=== PATIENT | female | born 1950 | race Hispanic/Latino ===

== ENCOUNTER → 2016-11-18 | Outpatient (CLI) | payer MEDICARE ==
--- NOTE | 2016-11-19 13:34 | MRI ---
EXAM DESCRIPTION: Lumbar Spine w/wo Contrast CLINICAL HISTORY: LUMBAR RADICULOPATHY COMPARISON: June 22, 2015 TECHNIQUE: MRI of the lumbar spine is performed according to our usual protocol with axial and sagittal multi sequence imaging. FINDINGS: MR demonstrates extensive spinal hardware with pedicle screws and posterior links at the L4-5 level and disc graft material at L5-S1 with anterior fixation with plating and screws into the L5 and S1 vertebral segments. Decompressive laminectomy has been performed from the upper L4 through the upper sacral level. Image quality is degraded by significant susceptibility artifact from the metallic hardware and little changed from June 2015 study. Three level diffuse disc desiccation is present. The conus is positioned at the T12-L1 level. Vertebral height at each level is maintained. The retroperitoneum and paraspinous structures are normal. No abnormality at the thoracolumbar junction is noted. L1-2: the disc is well hydrated. There is no loss of height. There is no bulging. The facets are unremarkable with no significant hypertrophy. There is no stenosis or impingement. L2-3: Disc desiccation with mild annular bulge with adequate canal and neural foramina and mild facet arthropathy, worse on the right. L3-4: Disc desiccation and disc space narrowing. Moderate broad-based bulging annulus with advanced facet arthropathy right greater than left creates moderate central canal stenosis slightly worse in appearance than seen in June 2015. Moderate bilateral L3 foraminal narrowing on a multifactorial basis. L4-5: Desiccation and advanced disc degeneration and endplate irregularity similar to that previously seen with pedicle screws above and below this disc level with wide prior laminectomy and decompression of the central canal. The neural foramina appear adequate. L5-S1: Prior anterior discectomy with graft material in place and anterior plating with anterior screws into the S1 and L5 vertebral bodies. Wide posterior decompression of the canal with adequate L5 neural foramina bilaterally. IMPRESSION: 1. Stents of prior lower lumbar surgery with wide decompressive laminectomy from upper L4 to upper S1 level. Bilateral pedicle screws and vertical rods at the L4-5 level and disc graft device in the anterior plating and screws at the L5-S1 level noted. 2. Satisfactory neural foramina and central canal at L4-5 and L5-S1. 3. Multifactorial circumferential spinal stenosis L3-4 with broad-based annular bulge and facet arthropathy worse on the right with moderate bilateral L3 foraminal narrowing as well. Slight progression since June 2015 is evident. 4. Annular bulge with adequate canal and foramen at L2-3. Electronically signed by: Ahsan Chapman MD 11/19/2016 1:33 PM CDT
== END ==
LOC: MRI 13:48
PROVIDERS: ATTEND Physical Medicine & Rehabilitation
DX: M54.16 Radiculopathy, lumbar region (principal); M48.06 Spinal stenosis, lumbar region; E04.2 Nontoxic multinodular goiter; Z98.890 Other specified postprocedural states

== ENCOUNTER → 2017-04-02 | Outpatient (CLI) | payer MEDICARE | LOC: BFHH 13:49 | PROVIDERS: ATTEND Family Medicine | DX: E87.6 Hypokalemia (principal); D61.810 Antineoplastic chemotherapy induced pancytopenia ==

== ENCOUNTER → 2017-11-30 | Outpatient (CLI) | payer MEDICARE ==
--- NOTE | 2017-12-02 09:54 | CT ---
EXAM DESCRIPTION: Abdomen/Pelvis w/wo Contrast CLINICAL HISTORY: MALIGNANT TUMOR OF RECTUM COMPARISON: None Available TECHNIQUE: CT of the abdomen and Pelvis was performed with and without IV contrast. This exam was performed according to our departmental dose-optimization program, which includes automated exposure control, adjustment of the mA and/or kV according to patient size and/or use of iterative reconstruction technique. FINDINGS: Pre-IV contrast images show no lung base abnormality. The gallbladder is surgically absent. Pneumobilia is noted, likely related to previous instrumentation of the ampulla. No urinary tract calculus. Following IV contrast administration, no abdominal aortic aneurysm or dissection is seen. The liver, spleen, pancreas, kidneys and adrenals are unremarkable. A suture line is noted in the right mid abdomen. No dilated small bowel loops are identified. The bladder is slightly distended without wall thickening or calcification. The uterus and ovaries are not seen, correlate with surgical history. Postoperative changes are noted in the colon including a colostomy in the left lower quadrant. There is a moderate amount of stool and gas in the colon proximal to the ostomy without colonic wall thickening or pericolonic inflammation. Slightly prominent appearance of remaining portions of the rectum is noted with subtle adjacent inflammation or scarring. There is an irregular collection of fluid density material in the cul-de-sac which is difficult to measure due to its shape but measures up to 2.7 cm maximum diameter. No internal gas, but this could represent a small abscess versus fluid in the distal colon. No adenopathy, ascites or pneumoperitoneum. No concerning bone lesion. Postoperative changes are noted in the lumbar spine. IMPRESSION: Postoperative changes in the colon with a left lower quadrant colostomy. Slightly prominent appearance of the distal rectum near the anorectal junction with mild adjacent inflammation. This may be related to scarring from prior surgery, please correlate physical exam to exclude the possibility of recurrent neoplasm. No evidence of metastatic disease. Small irregular fluid density structure in the region of the cul-de-sac which may represent fluid in the distal colon versus small abscess. Electronically signed by: Regino Cota MD 12/02/2017 9:53 AM CDT
== END ==
LOC: CT 14:09
DX: C20 Malignant neoplasm of rectum (principal); Z76.89 Persons encountering health services in other specified circumstances

== ENCOUNTER 2018-01-03 16:58 | Emergency (ER) | payer MEDICARE ==
--- NOTE | 2018-01-03 17:21 | ED.PDOC ---
History of Present Illness - General Chief Complaint: Abdominal Pain Stated Complaint: LLQ pain Time Seen by Provider: 01/03/18 17:21 Information Source: patient Exam Limitations: no limitations - History of Present Illness Initial Comments: Arcelia Beckman 67 y/o female with history of Stage 4 colon CA s/p colstomy,colon and liver rese ction came to er with sudden onset of constant sharp left lower quadrant pain this afternoon.No nausea/vomiting or blood colostomy. No hematuria ,or/dysuria. Abdominal Pain Onset Location: LLQ Pain Radiation: no radiation Quality: severe, sharpness Timing/Duration: 1-3 hours Improving Factors: nothing Worsening Factors: nothing Associated Symptoms: other - see hpi Review of Systems - Review of Systems Constitutional: States: no symptoms reported EENTM: States: no symptoms reported Respiratory: States: no symptoms reported Cardiology: States: no symptoms reported Gastrointestinal/Abdominal: States: see HPI Genitourinary: States: no symptoms reported Musculoskeletal: States: no symptoms reported Skin: States: no symptoms reported Neurological: States: no symptoms reported Past Medical History (General) - Patient Medical History Hx Seizures: No Hx Stroke: No Hx Asthma: No Hx of COPD: No Hx Cardiac Disorders: No Hx Congestive Heart Failure: No Hx Hypertension: Yes Hx Thyroid Disease: No Hx Diabetes: No Hx Renal Disease: No Hx Cancer: Yes - rectal-recent;breast-in remission Hx of HIV: No Hx MRSA: Yes - Surveillance Swab 2014 Hx Other - free text: Had radiation had chemotherapy for her colon CA Surgical History: appendectomy, cholecystectomy, other - mastectomy-toby.;colon/ partial liver resection;hysterectomy - Vaccination History Hx Tetanus, Diphtheria Vaccination: Yes Hx Influenza Vaccination: No Hx Pneumococcal Vaccination: Yes - Social History Hx Tobacco Use: No Hx Alcohol Use: No Hx Physical Abuse: No Hx Emotional Abuse: No Hx Suspected Abuse: No Family Medical History - Family History Mother Family History: Unknown Living Status: Unknown Hx Family Cancer: Yes - leukemia-dad Physical Exam - Physical Exam General Appearance: Alert, No apparent distress, Other - in pain Eyes, Ears, Nose, Throat Exam: normal ENT inspection Neck: full range of motion, supple, normal inspection Respiratory: lungs clear, normal breath sounds, no respiratory distress Cardiovascular/Chest: normal peripheral pulses, regular rate, rhythm, no murmur Peripheral Pulses: No deficit Gastrointestinal/Abdominal: soft, tenderness - left LLQ-no peritoneal signs, other - patent colostomy Back Exam: no CVA tenderness, no vertebral tenderness Extremity: no pedal edema, no calf tenderness Neurologic: alert, oriented x 3 Skin Exam: normal color, warm/dry Progress - Progress Progress: 01/03/18 20:40 Vital Signs - 8 hr 01/03/18 16:58 Temperature 97.3 F L Pulse Rate [ 68 Left Radial] Respiratory 22 Rate Blood Pressure 185/86 [Left Arm] O2 Sat by Pulse 99 Oximetry - Results/Orders Results/Orders: 01/03/18 17:21 IV Care:Saline Lock per Protoc QSHIFT Laboratory Results - last 24 hr 01/03/18 01/03/18 01/03/18 17:50 17:50 18:18 WBC 5.6 RBC 3.71 L Hgb 11.4 L Hct 34.5 L MCV 92.9 MCH 30.7 MCHC 32.9 L RDW 16.0 H Plt Count 168 MPV 9.5 Absolute Neuts (auto) 4.30 Absolute Lymphs (auto) 0.90 L Absolute Monos (auto) 0.40 Absolute Eos (auto) 0.10 Absolute Basos (auto) 0.00 Neutrophils % 76.1 Lymphocytes % 15.7 L Monocytes % 6.5 Eosinophils % 1.2 Basophils % 0.5 Sodium 140 Potassium 3.6 Chloride 104 Carbon Dioxide 30 Anion Gap 9.6 L BUN 15 Creatinine 0.54 L BUN/Creatinine Ratio 27.8 H Random Glucose 105 Serum Osmolality 280.6 Calcium 9.1 Total Bilirubin 0.4 AST 34 ALT 30 Alkaline Phosphatase 417 H Serum Total Protein 7.2 Albumin 3.8 Globulin 3.4 Albumin/Globulin Ratio 1.1 Urine Color Yellow Urine Appearance Clear Urine pH 7.0 Ur Specific [place] 1.010 Urine Protein Negative Urine Glucose (UA) Negative Urine Ketones Negative Urine Blood Trace-intact H Urine Nitrite Negative Urine Bilirubin Negative Urine Urobilinogen 0.2 Ur Leukocyte Esterase Negative Urine RBC 0-1 Urine WBC 0 Ur Epithelial Cells 1-3 Urine Bacteria 0 - EKG/XRAY/CT CT Ordered: Yes - abd/p-no acute changes from previous abd ct Departure - Departure Clinical Impression: History of colon cancer, stage IV, Constipation due to slow transit Abdominal pain Qualifiers: Abdominal location: left lower quadrant Qualified Code(s): R10.32 - Left lower quadrant pain Time of Disposition: 20:43 Disposition: Discharge to Home or Self Care Condition: Fair Departure Forms: ED Discharge - Pt. Copy, Patient Portal Self Enrollment Instructions: Colostomy Care, Constipation, Adult (DC) Referrals: TERESSA GREENE [Primary Care Provider] - 1-2 Weeks Home Medications: Ambulatory Orders ALPRAZolam [Xanax] 1 mg PO TID 04/10/14 Acai ([place] Oleracea) [Acai] 88 mg PO BID 04/10/14 Acetaminophen [Tylenol] 500 mg PO PRN PRN 04/10/14 Atenolol [Tenormin] 50 mg PO DAILY@0700 04/10/14 Bisacodyl [Stimulant Laxative] 5 mg PO PRN 04/10/14 Calcium Carbonate (Antacid) [Tums] 1 ea PO PRN 04/10/14 Cyclobenzaprine HCl [Flexeril] 10 mg PO TID 04/10/14 Dexlansoprazole [Dexilant] 60 mg PO DAILY 04/10/14 -Lidocaine Vis-Maalox [Gi Cocktail] 125 mg PO PRN 04/10/14 Echinacea 1 each PO PRN 04/10/14 Fluoxetine HCl [Prozac] 20 mg PO BEDTIME 04/10/14 Fluoxetine HCl [Prozac] 40 mg PO DAILY@0700 04/10/14 Hydrochlorothiazide 25 mg PO DAILY 04/10/14 Liniments & Rubs [Blue-Emu Super Strength] 1 cre EX PRN 04/10/14 Losartan Potassium [Cozaar] 25 mg PO DAILY 04/10/14 Melatonin 6 mg PO BEDTIME 04/10/14 Methylphenidate HCl [Ritalin] 10 mg PO BID 04/10/14 Simethicone [Gas Relief Maximum Streng] 125 mg PO PRN 04/10/14 Zolpidem Tartrate [Ambien] 10 mg PO BEDTIME 04/10/14 Additional Instructions: Return to ER as needed;Need to take your Miralax as directed on package;follow up with your primary Md as needed call for appointment
[2018-01-03] MEDS: MORPHINE SULFATE INJ 10 MG/ML VIAL IV ONE (17:32)
[2018-01-03] MEDS: PROMETHAZINE HCL INJ 25 MG/ML VIAL IM ONE (17:33)
[2018-01-03] MEDS: SODIUM CHLORIDE 0.9% 500ML 500 ML IVS ONE (17:33)
--- NOTE | 2018-01-03 18:35 | CT ---
EXAM DESCRIPTION: Abdoment/Pelvis w/o Contrast CLINICAL HISTORY: 67 years Female pain/s/p colostomy; colon ca COMPARISON: 12/01/2017 TECHNIQUE: Contiguous axial images obtained through the abdomen and pelvis without IV contrast. Reformatted images obtained. This exam was performed according to our department optimization program which includes automated exposure control, adjustment of the mA and/or kv according to patient size and/or use of iterative reconstruction technique. FINDINGS: Scarring in the lung bases. Bilateral breast implants. Small amount of gas in the anterior aspect of the liver suggesting pneumobilia. This is unchanged from the previous study. The spleen and pancreas appear unremarkable. No adrenal masses. The kidneys appear unremarkable. No hydronephrosis or definite ureteral calculi. The gallbladder is absent. No aneurysmal dilatation of the aorta. No bowel obstruction. There is a left lower quadrant colostomy. There is a moderate to large amount of fecal material in the colon which may reflect constipation. Mild wall thickening in segments of the transverse colon suggesting colitis. Scarring and/or stranding in the presacral space, similar to the previous study. No free pelvic fluid. IMPRESSION: Examination is limited without contrast Moderately large amount of fecal material in the colon which may reflect constipation Mild wall thickening of the transverse colon suggesting colitis Stranding in the presacral space similar to the previous study likely related to scarring Post surgical changes in the lumbar spine Electronically signed by: Nancy Nj MD 01/03/2018 6:33 PM CDT
[2018-01-03 20:59] VITALS: TEMP 97.9
[2018-01-03 21:00] VITALS: BP 160/77; O2SAT 100
== END 2018-01-03 21:01 | disposition home or self-care (01) ==
LOC: ER 16:58
DX: K59.01 Slow transit constipation (principal); I10 Essential (primary) hypertension; Z85.3 Personal history of malignant neoplasm of breast; Z85.038 Personal history of other malignant neoplasm of large intestine; Z90.13 Acquired absence of bilateral breasts and nipples
CPT/HCPCS: 36415; 74176; 80053; 81001; 85025; J2270; J2550; J7040

== ENCOUNTER → 2018-02-25 | Outpatient (CLI) | payer MEDICARE ==
--- NOTE | 2018-02-25 16:32 | CT ---
EXAM DESCRIPTION: Chest w/Contrast CLINICAL HISTORY: 67 years, Female, RECTAL CANCER COMPARISON: CT abdomen January 03, 2018 TECHNIQUE: Thin-section noncontrast axial CT images are obtained according to our protocol. Reconstructed MPR images are created and reviewed as well. FINDINGS: Lungs: No consolidating pulmonary infiltrate or groundglass infiltrate. Lung nodule in the superior segment left lower lobe involves the upper left major fissure with focal posterior displacement. This nodule measures 1 cm in diameter and may represent primary or metastatic neoplasm. Linear scarring or discoid atelectasis in the lingula is incidentally noted. Lesser similar changes in the left lower lobe and peripheral right middle lobe. Calcified granuloma in the periphery of the left upper lobe measures 4 mm. Mediastinum: Lymph nodes are normal in size. Normal vascular contours. Heart size is large with no pericardial effusion. Chest wall/axilla: No mass or adenopathy. Bilateral breast implants are present. Port-A-Cath on the right is present with tip in the lower superior vena cava. Lower neck/supraclavicular: No mass or adenopathy. Upper abdomen: Pneumobilia is seen in the liver. Gallbladder clips are present Otherwise unremarkable upper abdominal viscera. IMPRESSION: Lung nodule 1 cm in the superior segment left lower lobe consistent with primary or metastatic malignant lesion. Further evaluation with biopsy is recommended. This exam was performed according to our departmental dose-optimization program, which includes automated exposure control, adjustment of the mA and/or kV according to patient size and/or use of iterative reconstruction technique. Total DLP equals 99.01 mGycm. Electronically signed by: Randolph Williamson MD 02/25/2018 4:30 PM [facility]
== END ==
LOC: CT 13:30
PROVIDERS: ATTEND Internal Medicine
DX: C20 Malignant neoplasm of rectum (principal); R91.1 Solitary pulmonary nodule

== ENCOUNTER 2018-04-03 10:59 | Emergency (ER) | payer MEDICARE ==
[2018-04-03 11:23] VITALS: TEMP 97; O2SAT 99
--- NOTE | 2018-04-03 11:55 | ED.PDOC ---
History of Present Illness - General Chief Complaint: Problem Stated Complaint: burning with urination Time Seen by Provider: 04/03/18 11:41 Source: patient Exam Limitations: no limitations - History of Present Illness Initial Comments: Patient presents with burning with urination for 5 days. She says she went to another E.R. and was told that she was dehydrated. Denies hematuria. No other complaints. Timing/Duration: other - 5 days Severity: mild Improving Factors: nothing Worsening Factors: nothing Associated Symptoms: denies symptoms Allergies/Adverse Reactions: Allergies Codeine Allergy (Verified 04/03/18 11:43) NSAIDs Adverse Reaction (Verified 04/03/18 11:43) Sulfa Antibiotics Adverse Reaction (Verified 04/03/18 11:43) Tetracycline Adverse Reaction (Verified 04/03/18 11:43) Home Medications: Ambulatory Orders ALPRAZolam [Xanax] 2 mg PO TID 04/10/14 Acai ([place] Oleracea) [Acai] 88 mg PO BID 04/10/14 Cyclobenzaprine HCl [Flexeril] 10 mg PO TID 04/10/14 Hydrochlorothiazide 25 mg PO DAILY 04/10/14 Bupropion HCl [Bupropion HCl Sr] 300 mg PO DAILY 04/03/18 Fluconazole [Diflucan Tab] 150 mg PO ONCE #1 tab 04/03/18 Gabapentin 600 mg PO TID 04/03/18 Methylphenidate [Daytrana] 40 mg TD DAILY 04/03/18 Metoprolol Succinate [Metoprolol Succinate ER] 25 mg PO DAILY 04/03/18 Nitrofurantoin Monohydrate Mac [Macrobid] 100 mg PO BID #10 capsule 04/03/18 [place]-3 Fatty Acids [Fish Oil] 1 cap PO DAILY 04/03/18 Omeprazole 40 mg PO DAILY 04/03/18 Oxycodone W/ Acetaminophen [Oxycodone/Acetaminophen] 1 tab PO QID 04/03/18 Phenazopyridine HCl [Pyridium] 200 mg PO TID #6 tab 04/03/18 Review of Systems - Review of Systems Constitutional: States: no symptoms reported EENTM: States: no symptoms reported Respiratory: States: no symptoms reported Cardiology: States: no symptoms reported Gastrointestinal/Abdominal: States: no symptoms reported Genitourinary: States: see HPI Musculoskeletal: States: no symptoms reported Skin: States: no symptoms reported Neurological: States: no symptoms reported Endocrine: States: no symptoms reported Hematologic/Lymphatic: States: no symptoms reported Past Medical History (General) - Patient Medical History Hx Seizures: No Hx Stroke: No Hx Asthma: No Hx of COPD: No Hx Cardiac Disorders: No Hx Congestive Heart Failure: No Hx Hypertension: Yes Hx Thyroid Disease: No Hx Diabetes: No Hx Gastroesophageal Reflux: Yes Hx Renal Disease: No Hx Cancer: Yes - Breast,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 Hx of HIV: No Hx MRSA: Yes - Surveillance Swab 2014 Surgical History: cholecystectomy, Hysterectomy - Vaccination History Hx Tetanus, Diphtheria Vaccination: Yes Hx Influenza Vaccination: Yes Hx Pneumococcal Vaccination: No - Social History Hx Tobacco Use: Yes Hx Alcohol Use: No Hx Physical Abuse: No Hx Emotional Abuse: No Hx Suspected Abuse: No Family Medical History - Family History Mother Family History: Unknown Living Status: Unknown Hx Family Cancer: Yes - leukemia-dad Physical Exam - Physical Exam General Appearance: Alert Respiratory: lungs clear, normal breath sounds Cardiovascular/Chest: normal peripheral pulses, regular rate, rhythm Gastrointestinal/Abdominal: normal bowel sounds, non tender, soft Skin Exam: normal color Progress - Progress Progress: 04/03/18 11:54 Laboratory Tests 04/03/18 11:37 Urine Color Yellow Urine Appearance Clear Urine pH 6.0 Ur Specific [place] 1.015 Urine Protein Negative Urine Glucose (UA) Negative Urine Ketones Negative Urine Blood Small H Urine Nitrite Negative Urine Bilirubin Negative Urine Urobilinogen 0.2 Ur Leukocyte Esterase Small H Urine RBC 0 Urine WBC 3-5 H Ur Epithelial Cells 3-5 Urine Bacteria Rare Possibly a mild developing UTI. Will tx with Macrobid 100 mg bid x 5 days, diflucan 150 mg po once, and pyridium. Care instructions given. E.R. warnings given. Questions were elicited and an swered. Patient voiced understanding and agreement with the plan. Departure - Departure Clinical Impression: UTI (urinary tract infection) Disposition: Discharge to Home or Self Care Condition: Good Departure Forms: ED Discharge - Pt. Copy, Patient Portal Self Enrollment Diet: resume usual diet Activity: increase activity as tolerated Referrals: TERESSA GREENE [Primary Care Provider] - 1-2 Weeks Prescriptions: Fluconazole [Diflucan Tab] 150 mg PO ONCE #1 tab Nitrofurantoin Monohydrate Mac [Macrobid] 100 mg PO BID #10 capsule Phenazopyridine HCl [Pyridium] 200 mg PO TID #6 tab Home Medications: Ambulatory Orders ALPRAZolam [Xanax] 2 mg PO TID 04/10/14 Acai ([place] Oleracea) [Acai] 88 mg PO BID 04/10/14 Cyclobenzaprine HCl [Flexeril] 10 mg PO TID 04/10/14 Hydrochlorothiazide 25 mg PO DAILY 04/10/14 Bupropion HCl [Bupropion HCl Sr] 300 mg PO DAILY 04/03/18 Fluconazole [Diflucan Tab] 150 mg PO ONCE #1 tab 04/03/18 Gabapentin 600 mg PO TID 04/03/18 Methylphenidate [Daytrana] 40 mg TD DAILY 04/03/18 Metoprolol Succinate [Metoprolol Succinate ER] 25 mg PO DAILY 04/03/18 Nitrofurantoin Monohydrate Mac [Macrobid] 100 mg PO BID #10 capsule 04/03/18 [place]-3 Fatty Acids [Fish Oil] 1 cap PO DAILY 04/03/18 Omeprazole 40 mg PO DAILY 04/03/18 Oxycodone W/ Acetaminophen [Oxycodone/Acetaminophen] 1 tab PO QID 04/03/18 Phenazopyridine HCl [Pyridium] 200 mg PO TID #6 tab 04/03/18
[2018-04-03 12:12] VITALS: BP 153/79
== END 2018-04-03 12:12 | disposition home or self-care (01) ==
LOC: ER 10:59
DX: N39.0 Urinary tract infection, site not specified (principal); I10 Essential (primary) hypertension; K21.9 Gastro-esophageal reflux disease without esophagitis; Z87.891 Personal history of nicotine dependence; Z85.3 Personal history of malignant neoplasm of breast; Z85.040 Personal history of malignant carcinoid tumor of rectum; Z85.05 Personal history of malignant neoplasm of liver

== ENCOUNTER → 2018-06-17 | Outpatient (CLI) | payer MEDICARE ==
--- NOTE | 2018-06-18 10:00 | CT ---
Study: CT Chest. Indication: PULMONARY NODULE Technique: CT imaging of the chest obtained after intravenous administration of contrast. This exam was performed according to our departmental dose-optimization program, which includes automated exposure control, adjustment of the mA and/or kV according to patient size and/or use of iterative reconstruction technique. Comparison: February 25, 2018 Findings: Right IJ catheter tip terminates in distal SVC. Cardiomegaly. No pathologically enlarged mediastinal or hilar lymphadenopathy. Cholecystectomy clips. Pneumobilia redemonstrated. Degenerative changes of the spine noted. No consolidation, pleural effusion, or pneumothorax. Previously noted 10 mm pleural-based pulmonary nodule in the superior segment left lower lobe has markedly contracted with mild stellate scarring at this site. No new pulmonary nodules. Impression: Marked contraction of the previously noted left lower lobe pulmonary nodule which now demonstrates mild stellate scarring. No additional follow-up of this nodule required. Cardiomegaly. Pneumobilia. Electronically signed by: Patrice Dominique MD 06/18/2018 9:57 AM CDT
== END ==
LOC: CT 13:30
PROVIDERS: ATTEND Internal Medicine
DX: C78.7 Secondary malignant neoplasm of liver and intrahepatic bile duct (principal); R91.1 Solitary pulmonary nodule; I51.7 Cardiomegaly; K83.8 Other specified diseases of biliary tract

== ENCOUNTER → 2018-09-15 | Outpatient (CLI) | payer MEDICARE ==
--- NOTE | 2018-09-16 10:15 | CT ---
EXAM DESCRIPTION: Chest w/Contrast : Computed Tomography. CLINICAL HISTORY: 68 years Female Liver mets, lung mets COMPARISON: CT scan of the chest with IV contrast 06/17/2018. TECHNIQUE: Spiral-axial scans at 5 x 5 mm intervals through the lungs and thorax with IV contrast. 2.5 x 5 mm lung algorithm axial reconstructions. Coronal and sagittal 2.0 Mm reconstructions. No adverse reactions. Total Exam DLP: 241.49 mGy-cm. This exam was performed according to our departmental dose-optimization program which includes automated exposure control, adjustment of the mA and/or kV according to patient size and/or use of iterative reconstruction technique; to reduce radiation dose to as low as reasonably achievable (ALARA). Nodule measurements under 10 mm are given as mean value of 3 axes diameters. FINDINGS: Lungs and large airways: Thickened linear and branching densities representing scarring and/or atelectasis are visualized in the superior segment of the left lower lobe and the posterior left upper lobe abutting the major fissure and the superior lingula. This was not seen on the prior study. Some of this density is abutting the left lower lobe posterior pleura in the upper lobe lateral pleura. The density abutting the superior segment posterior pleura is more nodular. Pleural parenchymal scarring in the left lower lobe and minimal volume loss. No abnormal nodules or masses in the right lung. No focal infiltrates or scarring. Pleural spaces: Minimal thickening abutting the regions described above. No pleural effusion or pneumothorax. Mediastinum and Krista: No enlarged lymph nodes or dominant soft tissue masses. Great vessels and Heart: Negative. Soft tissues of neck base, axillae, and chest wall: Bilateral saline retro-muscular breast implants. Surgical clips superior to the left implant. Stable nodes. VAD injection port superior to right breast. Tip in customary position. Upper abdomen: Included peritoneal cavity negative. Air in the biliary tree. Surgical clips gallbladder fossa with no fluid. Dilated common bile duct. Adrenal glands and spleen normal size and enhancement. Osseous structures: Spondylosis thoracic spine. Anterior wedging of T9 is stable. Bilateral first costo sternal joint arthrosis. No bony or lytic blastic lesions. IMPRESSION: 1. Linear and nodular scarring and atelectasis upper lingula left lobe, superior left major fissure, and superior segment left lower lobe. Not seen on the prior study. Nodular densities unlikely to represent recurrent tumor. Cannot exclude small infiltrate. Most likely region of partial segmentectomy and radiation. Remainder of the lungs are unremarkable. No hilar, mediastinal, or chest wall soft tissue masses. Consider follow-up chest CT scan with IV contrast 3-6 month interval. 2. Included liver with no focal lesions. Air in the biliary system. No ascites. Electronically signed by: Jose Ramon Coffey MD 09/16/2018 10:13 AM CDT
== END ==
LOC: CT 09:00
PROVIDERS: ATTEND Internal Medicine
DX: C20 Malignant neoplasm of rectum (principal); C78.7 Secondary malignant neoplasm of liver and intrahepatic bile duct; C78.00 Secondary malignant neoplasm of unspecified lung

== ENCOUNTER → 2018-10-06 | Outpatient (CLI) | payer MEDICARE ==
--- NOTE | 2018-10-07 14:07 | CT ---
EXAM DESCRIPTION: Chest w/wo Contrast : Computed Tomography. 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 CT scan of the chest with and without contrast 09/15/2018. TECHNIQUE: Spiral-axial scans at 5 x 5 mm intervals through the lungs and thorax without and with IV contrast. 2.5 x 5 mm lung algorithm axial reconstructions. Coronal and sagittal 2.0 Mm reconstructions, postcontrast. No adverse reactions. Total Exam DLP: 561.68 mGy-cm. This exam was performed according to our departmental dose-optimization program which includes automated exposure control, adjustment of the mA and/or kV according to patient size and/or use of iterative reconstruction technique; to reduce radiation dose to as low as reasonably achievable (ALARA). Nodule measurements under 10 mm are given as mean value of 3 axes diameters. FINDINGS: Lungs and large airways: Stable pleural parenchymal scarring in the left lower lobe with volume loss. Confluent scarring in the right upper lobe involving the pleura and parenchyma, most likely site of prior partial lobectomy is stable. Stable subpleural nodular density lateral left upper lobe. Minimal bibasilar dependent atelectasis. No new nodules or masses. No acute focal infiltrates. Pleural spaces: Minimal thickening abutting the right upper lobe and right lower lobe stable. Mediastinum and Krista: No enlarged nodes or dominant soft tissue masses. Great vessels and Heart: Coronary artery calcification and cardiomegaly stable as well as atherosclerotic calcifications and other vessels. Soft tissues of neck base, axillae, and chest wall: Bilateral retro-muscular saline breast implants stable. Minimal atrophy in the right pectoral muscle compared to the left again noted. No new nodes are soft tissue masses. Upper abdomen: Please see abdomen pelvis CT report. Osseous structures: Minimal thoracic spondylosis predominantly at the apex of the dextroscoliotic curve. Minimal arthrosis left glenohumeral joint. No lytic or blastic lesions. IMPRESSION: Scarring and volume loss at the previous operative site left lung stable with no new abnormal nodules or masses. No acute infiltrates. Consider optional chest CT scan follow-up without and with IV contrast in 6-12 month interval. Electronically signed by: Jose Ramon Coffey MD 10/07/2018 2:05 PM CDT
--- NOTE | 2018-10-07 15:49 | CT ---
EXAM DESCRIPTION: Abdomen/Pelvis w/wo Contrast: Computed Tomography. CLINICAL HISTORY: ADENOCARCINOMA METASTATIC TO LIVER COMPARISON: CT scan of the chest without and with IV contrast on this visit. CT scan of abdomen and pelvis with and without contrast 01/03/2018. TECHNIQUE: Spiral-axial scans at 2.5 x 2.5 mm mm intervals through the abdomen and upper pelvis before nonionic IV contrast and same thickness scans after Optiray 320 nonionic IV contrast, arterial phase, liver through the upper pelvis. No oral contrast. Coronal and sagittal 2.0 mm reconstructions after 5 minute delay. 5 mm 5 minute delay helical-axial scans, liver through the pubic symphysis. No adverse reactions. Total Exam DLP 2302.05 mGy - cm. This exam was performed according to our departmental CT dose-optimization program which includes automated exposure control, adjustment of the mA and/or kV according to patient size and/or use of iterative reconstruction technique; to reduce radiation dose to as low as reasonably achievable (ALARA). FINDINGS: Lung bases and pleura: Please see chest CT report on the same visit. Liver, Stomach, Spleen, Adrenal Glands: No focal abnormally enhancing or nonenhancing hepatic masses. Air in the anterior biliary tract. Stomach and other solid organs are unremarkable. Pancreas, Gallbladder, Ducts: Surgical clips in the gallbladder fossa with no fluid. Dilated common bile duct. Minimal fatty infiltration of the pancreas with no focal masses. No peripancreatic inflammatory changes. Kidneys and Ureters: Negative. Mesentery: Minimal mesentery tracking along with colon in the colostomy site. No complications. Aorta: Moderate atherosclerotic calcifications and tortuosity minimal intimal wall hyperplasia or thrombus, no aneurysm or stenosis. Small Bowel: Minimal fluid and gas but no large air-fluid levels or significant distention. Terminal Ileum/Cecum: Minimal gas with normal caliber and surgical clips inferior cecum with no appendix. . Colon: Diffuse fecal matter throughout the colon. The proximal sigmoid colon is located within the colostomy site. No complications Pelvic Organs: The posterior inferior base of the urinary bladder protrudes in the midline with no wall thickening no gross intrinsic or extrinsic mass. Stable since the prior study. Vaginal cuff is unremarkable. Ovaries not seen. No fluid in the cul-de-sac. Spine and Bony Pelvis: Fusion construct L4-S1 with anterior plate and screws L5-S1 and bilateral transpedicular screws L4-L5 with unilateral connecting rods and posterior cross-link. No bony or hardware complications. Bilateral hip joint space narrowing. No lytic or blastic lesions. Abdominal Wall/Back Soft Tissues: Colostomy site as previously noted. Small inguinal lymph nodes. Diastases at the umbilicus but not containing bowel. IMPRESSION: 1. No focal hepatic lesions or abnormal contrast enhancement. Fatty infiltration of the pancreas with no focal lesions or inflammatory changes. No ascites. 2. No bowel obstruction. Moderate obstipation of the proximal and mid colon. Proximal sigmoid colon customary position in the colostomy with no complications at the colostomy site. 3. Postoperative changes urinary bladder with no complication seen. Fusion construct lumbar sacral spine with no bony or hardware complications. Electronically signed by: Jose Ramon Coffey MD 10/07/2018 3:46 PM CDT
== END ==
LOC: CT 13:30
PROVIDERS: ATTEND Surgery
DX: C78.7 Secondary malignant neoplasm of liver and intrahepatic bile duct (principal); C50.919 Malignant neoplasm of unspecified site of unspecified female breast; M54.89 Other dorsalgia; F41.8 Other specified anxiety disorders; K86.89 Other specified diseases of pancreas; K59.00 Constipation, unspecified; Z98.1 Arthrodesis status; Z98.890 Other specified postprocedural states

== ENCOUNTER → 2018-10-14 | Outpatient (CLI) | payer MEDICARE ==
--- NOTE | 2018-10-14 17:48 | CT ---
EXAM DESCRIPTION: Lumbar Spine CLINICAL HISTORY: 68 years Female, SPINAL STENOSIS. Pain. TECHNIQUE: Multislice CT of the lumbar spine was obtained with multiplanar reconstruction. No intravenous contrast. This exam was performed according to our departmental dose-optimization program, which includes automated exposure control, adjustment of the mA and/or kV according to patient size and/or use of iterative reconstruction technique. COMPARISON: MRI lumbar spine 11/18/2016. CT abdomen and pelvis 12/26/2017. FINDINGS: Post surgical changes relating to prior L4-S1 posterior decompressive laminectomies with paired rods and transpedicular hardware fixation at L4-L5 and anterior spinal fixation at L5-S1 with L4-L5 and L5-S1 interbody spacers. The hardware alignment is stable. No evidence of hardware fracture or displacement. No perihardware lucency to suggest hardware loosening. The spinal alignment is intact without significant listhesis. At L3-L4 there is moderate intervertebral disc height loss, endplate sclerosis and vacuum disc phenomenon in addition to moderate bilateral facet arthrosis. This results in at least moderate central canal stenosis mild to moderate bilateral neuroforaminal narrowing (slightly more pronounced on the left). There is diffuse osteopenia. Trace pneumobilia is redemonstrated within the liver, similar compared to prior examination. Mild lower lumbar spine paraspinal muscle atrophy. No drainable fluid collection. IMPRESSION: 1. Stable postsurgical changes of L4-S1 posterior spinal decompression and hardware fixation without evidence of hardware complication. 2. Moderate degenerative changes at L3-L4 with at least moderate central canal stenosis at this level. Electronically signed by: Sloan Garcia DO 10/14/2018 5:47 PM CDT
--- NOTE | 2018-10-14 18:05 | RAD ---
EXAM DESCRIPTION: Lumbar Spine 5 Views CLINICAL HISTORY: SPINAL STENOSIS COMPARISON: Lumbar spine MRI 917 CT abdomen and pelvis 10/06/2018.. TECHNIQUE: AP/lateral/ coned-down lateral/both flexion and extension FINDINGS: Five views of the lumbar spine were obtained. Stable postsurgical changes of L4-S1 posterior spinal decompression and hardware fixation without evidence of hardware fracture or displacement. The vertebral body heights are maintained, no displaced fractures. The spinal alignment is intact without significant listhesis on the neutral, flexion or extension views. No evidence of dynamic subluxation. Moderate degenerative changes with intervertebral disc height loss and endplate sclerosis is present at L3-L4. IMPRESSION: 1. Stable postsurgical changes of L4-S1 posterior spinal decompression and hardware fixation without evidence of hardware complication. 2. No evidence of dynamic spinal subluxation on flexion-extension views. Electronically signed by: Sloan Garcia DO 10/14/2018 6:04 PM CDT
== END ==
LOC: CT 14:00
PROVIDERS: ATTEND Surgery
DX: M48.061 Spinal stenosis, lumbar region without neurogenic claudication (principal); M47.896 Other spondylosis, lumbar region; Z98.890 Other specified postprocedural states

== ENCOUNTER 2018-10-28 18:48 | Emergency (ER) | payer MEDICARE ==
[2018-10-28] MEDS ORDERED: POTASSIUM CHLORIDE ELIXIR 20 MEQ/15 ML UD PO ONE ×2 (19:02→23:57)
[2018-10-28] MEDS ORDERED: MAGNESIUM SULFATE PREMIX 4GM 4 GM in PREMIX BAG 1 BAG IVPB ONE (19:02)
[2018-10-28] MEDS ORDERED: KCL 40MEQ/NS 1,000 ML IVS ONE (19:03)
[2018-10-28 19:21] VITALS: O2SAT 98
[2018-10-28] MEDS ORDERED: MAGNESIUM SULFATE PREMIX 4GM 50 ML IVPB ONE (19:21)
--- NOTE | 2018-10-28 20:04 | RAD ---
EXAM: XR Chest, 1 View CLINICAL HISTORY: intermittent chest pain TECHNIQUE: Frontal view of the chest. COMPARISON: 03/12/2017. FINDINGS: Limitations: None. Lungs: Focus of linear atelectasis or scarring are present in the left midlung. Pleural space: Unremarkable. No pneumothorax. Heart: Stable cardiomegaly. Mediastinum: Unremarkable. Bones/joints: Unremarkable. Tubes, lines and devices: Stable right jugular central venous port IMPRESSION: No significant acute abnormality noted. Electronically signed by: Anju Eubanks MD 10/28/2018 8:02 PM CDT
[2018-10-28] MEDS ORDERED: diazePAM 2 MG TAB PO ONE (21:01)
[2018-10-28] MEDS ORDERED: CYCLOBENZAPRINE HCL 5 MG TAB PO ONE (21:04)
[2018-10-28] MEDS ORDERED: CYCLOBENZAPRINE HCL 10 MG TAB ONE (21:07)
--- NOTE | 2018-10-29 00:21 | ED.PDOC ---
History of Present Illness - General Chief Complaint: Cardiovascular Problem Stated Complaint: low potassium, short of breath, chest pain Time Seen by Provider: 10/28/18 18:50 Source: patient Exam Limitations: no limitations - History of Present Illness Initial Comments: the patient is a 68-year-old female presenting to the emergency room secondary to symptoms of hypokalemia. The patient had a very low potassium level checked at her primary care doctor's office. The patient had been having some shaking symptoms along with some confusion and some peripheral pain for a couple of weeks. She actually had an MRI today to look for any metastatic disease in the brain but none was found. She should appear secondary to the profound hypokalemia. The patient is highly tremulous. She does have some spasticity. She does have some weakness and has a difficult time walking. She does show some significant confusion.she has been having scattered muscle spasms in the legs and arms and the chest wall as well. Timing/Duration: 1 week Severity: severe Improving Factors: nothing Worsening Factors: nothing Associated Symptoms: chest pain, headaches, malaise, weakness Allergies/Adverse Reactions: Allergies Codeine Allergy (Verified 04/03/18 11:43) NSAIDs Adverse Reaction (Verified 04/03/18 11:43) Sulfa Antibiotics Adverse Reaction (Verified 04/03/18 11:43) Tetracycline Adverse Reaction (Verified 04/03/18 11:43) Home Medications: Ambulatory Orders ALPRAZolam [Xanax] 2 mg PO TID 04/10/14 Acai ([place] Oleracea) [Acai] 88 mg PO BID 04/10/14 Cyclobenzaprine HCl [Flexeril] 10 mg PO TID 04/10/14 Hydrochlorothiazide 25 mg PO DAILY 04/10/14 Bupropion HCl [Bupropion HCl Sr] 300 mg PO DAILY 04/03/18 Fluconazole [Diflucan Tab] 150 mg PO ONCE #1 tab 04/03/18 Gabapentin 600 mg PO TID 04/03/18 Methylphenidate [Daytrana] 40 mg TD DAILY 04/03/18 Metoprolol Succinate [Metoprolol Succinate ER] 25 mg PO DAILY 04/03/18 Nitrofurantoin Monohydrate Mac [Macrobid] 100 mg PO BID #10 capsule 04/03/18 Hankins-3 Fatty Acids [Fish Oil] 1 cap PO DAILY 04/03/18 Omeprazole 40 mg PO DAILY 04/03/18 Oxycodone W/ Acetaminophen [Oxycodone/Acetaminophen] 1 tab PO QID 04/03/18 Phenazopyridine HCl [Pyridium] 200 mg PO TID #6 tab 04/03/18 Potassium Chloride [Potassium Chloride ER] 20 meq PO DAILY #20 tab 10/29/18 Review of Systems - Review of Systems Constitutional: States: malaise, weakness EENTM: States: no symptoms reported Respiratory: States: no symptoms reported Cardiology: States: chest pain - chest wall pain Gastrointestinal/Abdominal: States: nausea Genitourinary: States: no symptoms reported Musculoskeletal: States: see HPI Skin: States: no symptoms reported Neurological: States: see HPI, anxiety Endocrine: States: no symptoms reported All other Systems: No Change from Baseline Past Medical History (General) - Patient Medical History Hx Seizures: Yes Hx Stroke: No Hx Asthma: No Hx of COPD: No Hx Cardiac Disorders: No Hx Congestive Heart Failure: No Hx Hypertension: Yes Hx Thyroid Disease: No Hx Diabetes: No Hx Gastroesophageal Reflux: Yes Hx Renal Disease: No Hx Cancer: Yes - Breast,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 Hx of HIV: No Hx MRSA: Yes - Surveillance Swab 2014 Surgical History: appendectomy, cholecystectomy, other - Vaccination History Hx Tetanus, Diphtheria Vaccination: Yes Hx Influenza Vaccination: Yes Hx Pneumococcal Vaccination: No - Social History Hx Tobacco Use: Yes Hx Alcohol Use: Yes - occ Hx Physical Abuse: No Hx Emotional Abuse: No Hx Suspected Abuse: No Family Medical History - Family History Mother Family History: Unknown Living Status: Unknown Hx Family Cancer: Yes - leukemia-dad Physical Exam - Physical Exam General Appearance: Alert, Anxious Eye Exam: bilateral normal Ears, Nose, Throat: hearing grossly normal, normal ENT inspection Neck: full range of motion, supple Respiratory: lungs clear, normal breath sounds, no respiratory distress, no accessory muscle use Cardiovascular/Chest: normal peripheral pulses, regular rate, rhythm, no edema Peripheral Pulses: radial,right: 2+, radial,left: 2+ Gastrointestinal/Abdominal: non tender - ostomy bag in place, soft Rectal Exam: deferred Back Exam: no CVA tenderness, no vertebral tenderness Extremity: normal range of motion, non-tender, normal inspection, no pedal edema, normal capillary refill 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, alert, oriented x 3 - but easily confused, other - see history of present illness Skin Exam: normal color Comments: Vital Signs - 24 hr 10/28/18 10/28/18 10/28/18 19:05 20:00 21:30 Temperature 99.3 F Pulse Rate 55 L 55 L Pulse Rate [ 50 L apical] Pulse Rate [ 58 L 56 L 53 L left] Respiratory 24 22 22 Rate Blood Pressure 155/76 148/81 137/84 [Left Arm] O2 Sat by Pulse 98 98 98 Oximetry 10/28/18 10/28/18 22:00 23:31 Temperature Pulse Rate 56 L 56 L Pulse Rate [ apical] Pulse Rate [ 54 L 55 L left] Respiratory 22 20 Rate Blood Pressure 131/81 149/73 [Left Arm] O2 Sat by Pulse 98 98 Oximetry Progress - Progress Progress: 10/29/18 00:23 the patient is a 68-year-old female presenting to the emergency room with signs and symptoms of profound hypokalemia. The patient was monitored on telemetry monitoring. Magnesium was replaced followed by the potassium. She has received approximately 120 mEq of potassium. The patient's potassium went from 2.2 up to 2.9 at which point she was given another 40 mEq. Signs and symptoms of hypokalemia have essentially resolved. No significant arrhythmias noted on telemetry. Hypokalemia is most likely from hydrochlorothiazide use. She is to discontinue the hydrochlorothiazide. I'm going to place her on 20 mEq of potassium daily. She needs to have another potassium level checked around the middle of next week. She needs to follow up with her primary care doctor at that time. ER warnings were given for any worsening. - Results/Orders Results/Orders: Laboratory Tests 10/28/18 10/28/18 10/28/18 19:17 19:17 19:17 WBC 9.0 RBC 4.00 L Hgb 12.6 Hct 35.3 L MCV 88.4 MCH 31.6 H MCHC 35.7 RDW 13.6 Plt Count 224 MPV 9.2 Absolute Neuts (auto) 7.20 H Absolute Lymphs (auto) 0.90 L Absolute Monos (auto) 0.80 Absolute Eos (auto) 0.00 Absolute Basos (auto) 0.00 Neutrophils % 80.8 H Lymphocytes % 10.3 L Monocytes % 8.5 Eosinophils % 0.0 L Basophils % 0.4 PT 10.6 INR 1.06 PTT (SP) 27.6 Sodium 133 L Potassium 2.2 L* Chloride 97 L Carbon Dioxide 22 Anion Gap 16.2 BUN 24 H Creatinine 1.01 BUN/Creatinine Ratio 23.8 H Random Glucose 114 H Serum Osmolality 271.3 L Calcium 9.3 Magnesium Total Bilirubin 0.7 AST 30 ALT 26 Alkaline Phosphatase 295 H Creatine Kinase 305 H* CK-MB (CK-2) 7.6 H* CK-MB (CK-2) % 2.49 Troponin I 0.03 B-Natriuretic Peptide 27.5 Serum Total Protein 8.4 H Albumin 4.6 Globulin 3.8 H Albumin/Globulin Ratio 1.2 Urine Color Urine Appearance Urine pH Ur Specific [place] Urine Protein Urine Glucose (UA) Urine Ketones Urine Blood Urine Nitrite Urine Bilirubin Urine Urobilinogen Ur Leukocyte Esterase Urine RBC Urine WBC Ur Epithelial Cells Urine Bacteria Hyaline Casts 10/28/18 10/28/18 10/28/18 19:17 20:17 22:21 WBC RBC Hgb Hct MCV MCH MCHC RDW Plt Count MPV Absolute Neuts (auto) Absolute Lymphs (auto) Absolute Monos (auto) Absolute Eos (auto) Absolute Basos (auto) Neutrophils % Lymphocytes % Monocytes % Eosinophils % Basophils % PT INR PTT (SP) Sodium 134 L Potassium 2.9 L D Chloride 101 Carbon Dioxide 19 L Anion Gap 16.9 BUN 22 H Creatinine 0.92 BUN/Creatinine Ratio 23.9 H Random Glucose 123 H Serum Osmolality 272.9 L Calcium 9.1 Magnesium 2.2 Total Bilirubin AST ALT Alkaline Phosphatase Creatine Kinase CK-MB (CK-2) CK-MB (CK-2) % Troponin I B-Natriuretic Peptide Serum Total Protein Albumin Globulin Albumin/Globulin Ratio Urine Color Yellow Urine Appearance Clear Urine pH 5.5 Ur Specific [place] 1.010 Urine Protein Negative Urine Glucose (UA) Negative Urine Ketones Negative Urine Blood Trace-intact H Urine Nitrite Negative Urine Bilirubin Negative Urine Urobilinogen 0.2 Ur Leukocyte Esterase Negative Urine RBC 1-3 Urine WBC 0-1 Ur Epithelial Cells 0 Urine Bacteria 0 Hyaline Casts 0-1 EKG shows scattered inverted T waves which is consistent with her EKG from 2015. She does have sinus bradycardia rate of 52 bpm and mild left atrial dilation as well. No acute changes otherwise. Departure - Departure Clinical Impression: Hypokalemia due to loss of potassium Disposition: Discharge to Home or Self Care Condition: Fair Departure Forms: ED Discharge - Pt. Copy, Patient Portal Self Enrollment Diet: regular diet Activity: increase activity as tolerated Referrals: TERESSA GREENE [Primary Care Provider] - 1-2 Weeks Prescriptions: Potassium Chloride [Potassium Chloride ER] 20 meq PO DAILY #20 tab Home Medications: Ambulatory Orders ALPRAZolam [Xanax] 2 mg PO TID 04/10/14 Acai ([place] Oleracea) [Acai] 88 mg PO BID 04/10/14 Cyclobenzaprine HCl [Flexeril] 10 mg PO TID 04/10/14 Hydrochlorothiazide 25 mg PO DAILY 04/10/14 Bupropion HCl [Bupropion HCl Sr] 300 mg PO DAILY 04/03/18 Fluconazole [Diflucan Tab] 150 mg PO ONCE #1 tab 04/03/18 Gabapentin 600 mg PO TID 04/03/18 Methylphenidate [Daytrana] 40 mg TD DAILY 04/03/18 Metoprolol Succinate [Metoprolol Succinate ER] 25 mg PO DAILY 04/03/18 Nitrofurantoin Monohydrate Mac [Macrobid] 100 mg PO BID #10 capsule 04/03/18 Hankins-3 Fatty Acids [Fish Oil] 1 cap PO DAILY 04/03/18 Omeprazole 40 mg PO DAILY 04/03/18 Oxycodone W/ Acetaminophen [Oxycodone/Acetaminophen] 1 tab PO QID 04/03/18 Phenazopyridine HCl [Pyridium] 200 mg PO TID #6 tab 04/03/18 Potassium Chloride [Potassium Chloride ER] 20 meq PO DAILY #20 tab 10/29/18 Additional Instructions: the patient is a 68-year-old female presenting to the emergency room with signs and symptoms of profound hypokalemia. The patient was monitored on telemetry monitoring. Magnesium was replaced followed by the potassium. She has received approximately 120 mEq of potassium. The patient's potassium went from 2.2 up to 2.9 at which point she was given another 40 mEq. Signs and symptoms of hypokalemia have essentially resolved. No significant arrhythmias noted on telemetry. Hypokalemia is most likely from hydrochlorothiazide use. She is to discontinue the hydrochlorothiazide. I'm going to place her on 20 mEq of potassium daily. She needs to have another potassium level checked around the middle of next week. She needs to follow up with her primary care doctor at that time. ER warnings were given for any worsening.
[2018-10-29 01:19] VITALS: BP 170/83; TEMP 98.6
== END 2018-10-29 01:19 | disposition home or self-care (01) ==
LOC: ER 18:48
DX: E87.6 Hypokalemia (principal); R07.1 Chest pain on breathing; R00.1 Bradycardia, unspecified; I10 Essential (primary) hypertension; K21.9 Gastro-esophageal reflux disease without esophagitis; M62.838 Other muscle spasm; R56.9 Unspecified convulsions; Z87.891 Personal history of nicotine dependence; Z85.3 Personal history of malignant neoplasm of breast; Z85.040 Personal history of malignant carcinoid tumor of rectum; Z85.05 Personal history of malignant neoplasm of liver; Z88.5 Allergy status to narcotic agent; Z88.6 Allergy status to analgesic agent; Z88.2 Allergy status to sulfonamides; Z88.3 Allergy status to other anti-infective agents; Z79.899 Other long term (current) drug therapy
CPT/HCPCS: 36415; 71045; 80048; 80053; 81001; 82550; 82553; 83735; 83880; 84484; 85025; 85610; 85730; 93005; J3475; J3480

== ENCOUNTER 2018-11-24 14:34 | Emergency (ER) | payer MEDICARE ==
[2018-11-24] MEDS ORDERED: SODIUM CHLORIDE 0.9% 1000ML 1,000 ML IVS ONE (15:14)
--- NOTE | 2018-11-24 15:39 | ED.PDOC ---
History of Present Illness - General Chief Complaint: Abdominal Pain Time Seen by Provider: 11/24/18 15:13 Information Source: patient, RN notes reviewed, Vital Signs reviewed, family - - History of Present Illness Abdominal Pain Onset Location: periumbilical, suprapubic Pain Radiation: no radiation Quality: moderate, burning, cramping, intermittent Timing/Duration: 1 week Improving Factors: nothing Worsening Factors: nothing Associated Symptoms: denies symptoms Review of Systems - Review of Systems Constitutional: Denies: chills, fever EENTM: States: no symptoms reported Respiratory: Denies: no symptoms reported, cough, orthopnea, short of breath, stridor Cardiology: States: no symptoms reported. Denies: chest pain, palpitations Gastrointestinal/Abdominal: States: see HPI, abdominal pain, constipation, nausea. 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 Hx of HIV: No Hx MRSA: Yes - Surveillance Swab 2014 - Vaccination History Hx Tetanus, Diphtheria Vaccination: Yes Hx Influenza Vaccination: Yes Hx Pneumococcal Vaccination: No - Social History Hx Tobacco Use: Yes Hx Alcohol Use: Yes - occ Hx Physical Abuse: No Hx Emotional Abuse: No Hx Suspected Abuse: No Family Medical History - Family History Mother Family History: Unknown Living Status: Unknown Hx Family Cancer: Yes - leukemia-dad Physical Exam - Physical Exam General Appearance: Alert, Anxious, Well Developed, Well Hydrated, Well Nourished Eyes, Ears, Nose, Throat Exam: PERRL/EOMI, normal ENT inspection, TMs normal, pharynx normal Neck: non-tender, full range of motion, supple Respiratory: chest non-tender, lungs clear, normal breath sounds, no respiratory distress, no accessory muscle use Cardiovascular/Chest: normal peripheral pulses, regular rate, rhythm, no edema, no murmur Gastrointestinal/Abdominal: normal bowel sounds, non tender, soft, distended, tenderness - suprapubic, other - colostomy bag in place Back Exam: normal inspection, no vertebral tenderness Extremity: normal range of motion, non-tender 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 Plan d/c home at this time. I have d/w the pt and her the plan of care and they voice understanding and agreement with POC. Matthew Echavarria M.D. #[id number] - Results/Orders Results/Orders: 11/24/18 15:14 IV:Start .ONCE Laboratory Results - last 24 hr 11/24/18 11/24/18 11/24/18 15:28 16:20 16:20 WBC 5.5 RBC 3.62 L Hgb 11.6 L Hct 33.2 L MCV 91.7 MCH 32.0 H MCHC 34.9 RDW 14.3 Plt Count 174 MPV 9.6 Absolute Neuts (auto) 4.30 Absolute Lymphs (auto) 0.70 L Absolute Monos (auto) 0.30 Absolute Eos (auto) 0.20 Absolute Basos (auto) 0.00 Neutrophils % 77.4 Lymphocytes % 13.2 L Monocytes % 6.0 Eosinophils % 2.9 Basophils % 0.5 Sodium 141 Potassium 3.4 L Chloride 108 Carbon Dioxide 23 Anion Gap 13.4 BUN 21 H Creatinine 0.77 BUN/Creatinine Ratio 27.3 H Random Glucose 99 Serum Osmolality 284.3 Calcium 9.3 Total Bilirubin 0.2 AST 17 ALT 17 Alkaline Phosphatase 172 H Serum Total Protein 6.7 Albumin 3.7 Globulin 3.0 Albumin/Globulin Ratio 1.2 Lipase 23 Urine Color Yellow Urine Appearance Cloudy Urine pH 7.0 Ur Specific [place] 1.025 Urine Protein Negative Urine Glucose (UA) Negative Urine Ketones Negative Urine Blood Negative Urine Nitrite Negative Urine Bilirubin Negative Urine Urobilinogen 0.2 Ur Leukocyte Esterase Negative Urine RBC 0 Urine WBC 0 Ur Epithelial Cells 0 Calcium Oxalate Crystal 4+ Urine Bacteria 0 Departure - Departure Clinical Impression: Dehydration, Dysuria, Hypokalemia Time of Disposition: 17:18 Disposition: Discharge to Home or Self Care Condition: Good Departure Forms: ED Discharge - Pt. Copy, Patient Portal Self Enrollment Instructions: DI for Abdominal Pain-Adult, Dehydration, Adult (DC), Dysuria, Adult (DC) Referrals: TERESSA GREENE [Primary Care Provider] - 1-2 Weeks Home Medications: Ambulatory Orders Cyclobenzaprine HCl [Flexeril] 10 mg PO TID 04/10/14 Hydrochlorothiazide 25 mg PO DAILY 04/10/14 Metoprolol Succinate [Metoprolol Succinate ER] 25 mg PO DAILY 04/03/18 Omeprazole 40 mg PO DAILY 04/03/18 Oxycodone W/ Acetaminophen [Oxycodone/Acetaminophen] 1 tab PO QID 04/03/18 Acyclovir [Zovirax] 400 mg PO DAILY 10/29/18 Buspirone HCl [Buspirone Hydrochloride] 30 mg PO DAILY 10/29/18 Potassium Chloride [Potassium Chloride ER] 20 meq PO DAILY #20 tab 10/29/18 Sertraline HCl [Zoloft] 150 mg PO DAILY 10/29/18 Topiramate 50 mg PO DAILY 10/29/18
[2018-11-24] MEDS ORDERED: POTASSIUM BICARBONATE 25 MEQ TAB PO ONE (17:06)
[2018-11-24 18:23] VITALS: BP 170/69; TEMP 98.2; O2SAT 99
== END 2018-11-24 18:21 | disposition home or self-care (01) ==
LOC: ER 14:34
DX: E86.0 Dehydration (principal); R30.0 Dysuria; E87.6 Hypokalemia; R10.33 Periumbilical pain; R11.0 Nausea; I10 Essential (primary) hypertension; R56.9 Unspecified convulsions; K21.9 Gastro-esophageal reflux disease without esophagitis; Z93.3 Colostomy status; Z85.3 Personal history of malignant neoplasm of breast; Z85.040 Personal history of malignant carcinoid tumor of rectum; Z85.05 Personal history of malignant neoplasm of liver; Z87.891 Personal history of nicotine dependence; Z79.899 Other long term (current) drug therapy
CPT/HCPCS: 36415; 80053; 81001; 83690; 85025; J7030

== ENCOUNTER → 2018-12-30 | Outpatient (CLI) | payer MEDICARE ==
--- NOTE | 2018-12-30 16:50 | MRI ---
EXAM DESCRIPTION: MRA Head and/or Neck CLINICAL HISTORY: 68 years Female, VASCULAR DEMENTIA WITH BEHAVIOR DISTURBANCE COMPARISON: None. TECHNIQUE: 3-D [id number] intracranial MR angiography was performed without contrast. Axial source data images are evaluated in addition to skin and tunnel display MIP edited images of the intracranial arteries. FINDINGS: Axial source data images show positive flow signal in the peripheral branches of the anterior, middle and posterior cerebral arterial distributions. Positive flow signal in the intracranial internal carotid arteries. There is positive flow signal in the middle cerebral and anterior cerebral arteries and anterior communicating artery. Positive flow signal is seen in the vertebral arteries which are asymmetrical, left larger than right. Positive flow signal in the basilar artery, superior cerebellar and posterior cerebral arteries. Positive anterior inferior cerebellar arterial flow signal. No aneurysm or major vessel occlusion. MIP images are evaluated with spin and tumble display. No aneurysm is identified. Anatomically larger right anterior cerebral artery is seen compared to the left. Prominent anterior communicating artery supplies the left distally. Left middle cerebral and peripheral branches are normal. Normal supraclinoid ICAs. Right M1 segment branch shows high-grade stenoses x3 approximately 75-90%. Patient had a previous MRI of the brain October 28, 2018 which showed no restriction on the diffusion-weighted images to suggest infarction at that time. A repeat MRI with diffusion imaging may be helpful to evaluate brain parenchyma in the right MCA distribution. Normal flow signal in the vertebral artery and posterior cerebral arteries without stenosis. 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 See above. Electronically signed by: Randolph Williamson MD 12/30/2018 4:49 PM CDT
--- NOTE | 2018-12-30 16:57 | MRI ---
EXAM DESCRIPTION: MRA Head and/or Neck CLINICAL HISTORY: 68 years Female, TRANSIENT CEREBRAL ISCHEMIC ATTACK COMPARISON: None. TECHNIQUE: 2-D [id number] MR angiography of the cervical arteries was performed without contrast. Axial source data images are evaluated in addition to 3-D MIP spin tumble display agitated images. FINDINGS: 3-D MIP images show positive flow signal in the vertebral arteries with left slightly larger than right. Normal common carotid arterial flow with normal widely patent carotid bifurcations. The internal carotid arteries are patent with normal flow signal from the level of the carotid bifurcation to the skull base. Positive subclavian arterial flow signal. Arteriosclerotic changes in the region of the left carotid bulb are minimal with less than 20% luminal narrowing. Axial source data images show normal flow signal in the vertebral arteries, common carotid arteries and carotid bifurcations bilaterally. Normal flow signal in the internal and external carotid arteries to the level of the skull base. IMPRESSION: Normal flow signal in the cervical vertebral arteries. Normal widely patent carotid bifurcations. Electronically signed by: Randolph Williamson MD 12/30/2018 4:55 PM CDT
== END ==
LOC: MRI 14:00
PROVIDERS: ATTEND Psychiatry & Neurology Neurology
DX: F01.51 Vascular dementia, unspecified severity, with behavioral disturbance (principal); G45.9 Transient cerebral ischemic attack, unspecified; I66.01 Occlusion and stenosis of right middle cerebral artery

== ENCOUNTER → 2019-04-28 | Outpatient (CLI) | payer MEDICARE ==
--- NOTE | 2019-04-29 08:37 | MRI ---
EXAM DESCRIPTION: Cervical Spine CLINICAL HISTORY: RADICULOPATHY CERVICAL REGION COMPARISON: Plain film x-ray same day TECHNIQUE: Multiplanar MRI of the cervical spine was performed without contrast. FINDINGS: Abnormal decreased signal on T1 and T2-weighted sequences with minimal increased signal on STIR weighted images involving the C7 vertebral body. Mild increased signal on STIR weighted images is seen surrounding the vertebral body. No abnormal fluid collection. No definite loss of vertebral body height or retropulsed fragment. Mild increased T2 signal in the lamina of the right T1 vertebral body. Mild anterior wedging of the superior endplates of T3 and T4 with small Schmorl's node in the superior plate of T4 and no bone marrow edema. Desiccation of the disc spaces throughout the cervical spine. Anterior disc osteophytic ridging from C4 through C7 is seen. Straightening of the normal cervical lordosis. The craniocervical junction is maintained. A normal basilar flow void is seen. The spinal cord shows normal MRI signal. No pathologic lymphadenopathy in the neck soft tissues. C1-2 and craniocervical junction Unremarkable C2-3 Moderate left and mild right facet hypertrophic and degenerative changes are seen with moderate left foraminal encroachment. C3-4 Mild left greater than right facet hypertrophic and degenerative changes are seen. Moderate left uncovertebral joint disc osteophytic ridging is seen. Severe left foraminal encroachment. C4-5 Moderate diffuse disc space narrowing with less than 2 mm broad-based ventral ridging disc osteophyte complex and uncovertebral joint hypertrophy. Mild left greater than right facet hypertrophic and degenerative changes are seen. At least moderate bilateral foraminal encroachment. C5-6 Moderate to severe disc space narrowing and endplate irregularity is seen with mild posterior ligamentum flavum thickening decreasing CSF signal from around the spinal cord. The thecal sac measures 7.5 mm AP centrally. Mild spinal canal stenosis. Bilateral uncovertebral joint disc osteophytic ridging is seen with severe bilateral foraminal encroachment. C6-7 Severe disc space narrowing. Less than 2 mm broad-based ventral ridging disc osteophyte complex and uncovertebral joint disc osteophytic ridging is seen including mild posterior ligamentum flavum thickening or buckling. Multifactorial moderate spinal canal stenosis with thecal sac measuring 6 mm AP centrally. Severe right greater than left foraminal encroachment is seen at this level. C7-T1 Mild right greater than left facet hypertrophic and degenerative changes are seen without spinal canal stenosis or foraminal encroachment. Partial fusion of the right facet joint is suggested. IMPRESSION: Abnormal decreased T1 and T2 signal involving the C7 vertebral body with surrounding increased signal on STIR weighted sequences concerning for possible osteoblastic metastasis. Consider postcontrast MRI imaging. Noncontrast CT of the cervical spine may also be useful for better evaluation of osseous matrix. If this patient cannot have gadolinium contrast, further evaluation with bone scan imaging may be useful. Correlate with plain film x-rays as well. Mild to moderate disc degenerative changes and facet arthropathy of the cervical spine are seen. Multifactorial moderate spinal canal stenosis at C6-7 with at least mild spinal canal stenosis at C5-6. Multilevel foraminal encroachment is seen as described level by level above most prominent from C3 through C7. Remote appearing mild anterior wedging of the superior endplates at T3 and T4. Electronically signed by: Terrance Gudino MD 04/29/2019 8:36 AM CIGARETTE EXAMINER
--- NOTE | 2019-04-29 08:40 | RAD ---
EXAM DESCRIPTION: Cervical Spine,Flex/Ext CLINICAL HISTORY: RADICULOPATHY CERVICAL REGION COMPARISON: Cervical spine same day IMPRESSION: Standing lateral flexion and extension views of the cervical spine show moderate disc space narrowing from C4 through C6 with anterior disc osteophytic ridging from C4 through C7 compatible with mild disc degenerative disease. Limited range of motion is seen with flexion and extension. 1 to 2 mm anterolisthesis of C3 on C4 seen with flexion which could indicate mild instability. C7 vertebral body is not identified because of overlapping densities. Recommend 5 view cervical spine series including swimmer's view as needed for better evaluation of the abnormal findings seen at C7 on the MRI. Electronically signed by: Terrance Gudino MD 04/29/2019 8:39 AM MOBILE DEVELOPER
== END ==
LOC: MRI 13:00
PROVIDERS: ATTEND Nurse Practitioner Family
DX: M54.12 Radiculopathy, cervical region (principal); M25.78 Osteophyte, vertebrae; M43.12 Spondylolisthesis, cervical region; M50.93 Cervical disc disorder, unspecified, cervicothoracic region; M51.84 Other intervertebral disc disorders, thoracic region; M50.30 Other cervical disc degeneration, unspecified cervical region; M12.9 Arthropathy, unspecified; M48.02 Spinal stenosis, cervical region

== ENCOUNTER → 2019-06-27 | Outpatient (CLI) | payer MEDICARE ==
--- NOTE | 2019-06-27 14:54 | CT ---
EXAM DESCRIPTION: Chest w/o Contrast : Computed Tomography. CLINICAL HISTORY: 69 years Female METS TO BONE AND LIVER COMPARISON: CT scan of the chest with contrast May 05. Radionuclide total body bone scan on this visit. TECHNIQUE: Spiral-axial scans at 5.0 mm intervals through the lungs and thorax with 50 mL Optiray 320 nonionic IV contrast. 2.5 x 5 mm lung algorithm axial reconstructions. : Sagittal 2.0 Mm reconstructions. No adverse reactions. Due to poor IV access, contrast amount was decreased and the contrast was hand injected IV. This resulted in suboptimal contrast enhancement. Total Exam DLP: 380 mGy-cm. This exam was performed according to our departmental dose-optimization program which includes automated exposure control, adjustment of the mA and/or kV according to patient size and/or use of iterative reconstruction technique; to reduce radiation dose to as low as reasonably achievable (ALARA). Nodule measurements under 10 mm are given as mean value of 3 axes diameters. FINDINGS: Lungs and large airways: Again noted is scarring and volume loss in the superior segment of the left lower lobe also involving the inferior hilar region with pleural parenchymal scarring. Pleural parenchymal scarring in the base, also left upper lobe. No recurrent mass or abnormal nodule. No new infiltrate. Stable subpleural nodule versus pleural thickening bilateral apices. No new masses or in the lung, no new nodules, and no new infiltrate. Pleural spaces: Bilateral focal pleural thickening and scarring is unchanged. Mediastinum and Krista: Evaluation limited due to suboptimal IV contrast enhancement. No new lymph nodes or dominant soft tissue masses. Great vessels and Heart: Evaluation limited due to suboptimal IV contrast enhancement. Stable injection port and central venous line in the SVC via right subclavian. Minimal aortic atherosclerotic calcification. Soft tissues of neck base, axillae, and chest wall: Evaluation limited due to suboptimal IV contrast enhancement. Stable bilateral breast implants. Stable low-density nodule abutting the superior left breast implant. Stable calcification inferior left lobe thyroid gland. No soft tissue complications with injection port. Upper abdomen: Air in the anterior intrahepatic biliary system. Surgical clips gallbladder fossa. No free fluid or free air. Osseous structures: Spondylosis in the thoracic spine and scoliosis with partial compression superior T7 vertebral body. Arthrosis in the bilateral glenohumeral joints. No blastic or lytic lesions in the included thoracic bony structures. IMPRESSION: 1. Stable scarring and volume loss superior segment left lower lobe from prior segmentectomy. Chronic densities both lungs with no new masses or nodules. No new infiltrates. No new mass are enlarged lymph nodes in the mediastinum or hilum. Evaluation limited due to technical problem with IV contrast enhancement as described. Electronically signed by: Jose Ramon Coffey MD 06/27/2019 2:52 PM CDT
--- NOTE | 2019-06-28 13:04 | NM ---
EXAM DESCRIPTION: Bone Scan, Whole Body: Nuclear Medicine CLINICAL HISTORY: 69 years Female RECTAL CANCER. Patient has also had breast cancer. COMPARISON: CT scan chest without contrast on the same visit. CT scan cervical spine on May 11. MRI scan of the total spine May 04. TECHNIQUE: Patient injected with 24.8 mCi of technetium 99M MDP IV. Delayed gamma camera images of the entire skeleton and enlarged images of the chest abdomen and spine from anterior and posterior planes were obtained 3 hr after injection. FINDINGS: Increased activity in the vertebral bodies at the cervicothoracic junction, particularly the C7 vertebral body. Also in the left side elements at the C3 or C4 level. Question of focal activity in the left side elements of the T7 vertebral body or the left costovertebral junction at this level seen only on the posterior images. Increased focal activity at the L3-4 level more to the right of midline and in the L4-L5 disc space and L4 vertebral body bilaterally. Dextroscoliosis T5-T7. Activity in the bilateral AC joints and glenohumeral joints most likely related to arthrosis. Activity in the right wrist and thumb carpometacarpal joint also related to arthrosis. Questionable photopenic region in the distal left forearm. Photopenic region in the right knee corresponding to a total knee arthroplasty. Activity in the left knee most likely related to patellofemoral arthrosis and medial compartment arthrosis. Bilateral arthrosis in the ankle joints more left than right. No abnormal focal radiopharmaceutical activity in the long bones or flat bones of the axial or appendicular skeleton. Normal soft tissue activity. IMPRESSION: 1. Increased radiopharmaceutical activity in the C7 vertebral body, corresponds with hypointense T1 and T2-weighted signal, and increased signal on STIR images in the vertebral body on recent cervical spine MRI. This vertebral body also showed minimal MRI gadolinium contrast enhancement. Also corresponds with erosive and destructive changes in the posterior cortical margin on recent CT scan cervical spine. This is consistent with focal metastatic disease at this level. Activity in the left side elements at C3 and C4 level could be related to facet arthrosis versus metastatic disease. 2. Activity in the L3 and L4 vertebral body levels more posterior than anterior. This corresponds to region of lumbar fusion and hardware as seen on the recent MRI scan. Due to artifact from the fusion hardware, abnormal enhancement cannot be identified on the MRI scan, and also limited visualization of the marrow of these levels. CT scan of the lumbar spine may be helpful to evaluate the cortex and trabecula of the vertebral bodies, despite the hardware. 3. No abnormal activity in the remaining long bones or flat bones of the appendicular or axial skeleton. Electronically signed by: Jose Ramon Coffey MD 06/28/2019 1:02 PM CDT
== END ==
LOC: CT 10:00
PROVIDERS: ATTEND Internal Medicine
DX: C20 Malignant neoplasm of rectum (principal); C78.00 Secondary malignant neoplasm of unspecified lung; C79.51 Secondary malignant neoplasm of bone; R91.8 Other nonspecific abnormal finding of lung field; Z98.890 Other specified postprocedural states; Z98.1 Arthrodesis status

== ENCOUNTER → 2019-07-27 | Outpatient (CLI) | payer MEDICARE ==
--- NOTE | 2019-07-27 10:33 | MRI ---
EXAM DESCRIPTION: Cervical Spine w/wo Contrast CLINICAL HISTORY: 69 years Female, SPINAL METS COMPARISON: MRI of the cervical spine dated 05/04/2019. CT of the cervical spine dated 05/12/2019. TECHNIQUE: MRI of the cervical spine was performed before and after gadolinium administration. FINDINGS: Again identified is a T1 and T2 hypointense lesion involving almost the entire C7 vertebral body. However the lesion appears expansile on today's study with retropulsion of the posterior cortex by approximately 4 mm and the anterior cortex by approximately 5 mm . There is resultant severe central canal stenosis at this level with the thecal sac measuring approximately 6 mm. Moderate to severe bilateral neural foraminal narrowing is also identified at this level. No intrinsic signal abnormality within the cervical spinal cord. Multilevel degenerative changes are identified throughout the cervical spine, unchanged compared to prior examination. IMPRESSION: Again identified is a T1 and T2 hypointense lesion involving almost the entire C7 vertebral body. However the lesion appears expansile on today's study with retropulsion of the posterior cortex by approximately 4 and the anterior cortex by approximately 5 mm . There is resultant severe central canal stenosis at this level with the thecal sac measuring approximately 6 mm. Moderate to severe bilateral neural foraminal narrowing is also identified at this level. Electronically signed by: Nellie Salguero MD 07/27/2019 10:31 AM CDT
== END ==
LOC: MRI 07:00
PROVIDERS: ATTEND Internal Medicine
DX: C79.51 Secondary malignant neoplasm of bone (principal); M48.02 Spinal stenosis, cervical region

== ENCOUNTER → 2019-07-28 | Outpatient (CLI) | payer MEDICARE ==
--- NOTE | 2019-07-28 18:47 | CT ---
EXAM DESCRIPTION: Chest w/o Contrast (accession [id number]), Abdoment/Pelvis w/o Contrast (accession [id number]) CLINICAL HISTORY: 69 years, Female, LUNG METASTASIS, prior rectum/colon Adenocarcinoma. COMPARISON: Bone scan 06/27/2019, CT chest 06/27/2019, abdomen and pelvis most recent 05/05/2019. TECHNIQUE: CT of the chest, abdomen, and pelvis are performed without IV contrast administration. Multiplanar reconstructions were obtained. This exam was performed according to our departmental dose-optimization program, which includes automated exposure control, adjustment of the mA and/or kV according to patient size and/or use of iterative reconstruction technique. CT CHEST FINDINGS: Partially limited evaluation without intravenous contrast. Postsurgical changes relating to left lower lobe superior segmentectomy and prior metastatic pulmonary nodule resection. Nodular thickening at the surgical bed appears to be stable. No evidence of local tumor recurrence. No new pulmonary nodule. Mild bibasilar subsegmental atelectasis. No focal consolidation, pneumothorax, or pleural effusion. The heart is normal in size without pericardial effusion. The great vessels are normal in caliber. Right chest wall Port-A-Cath terminates at the cavoatrial junction. No mediastinal or hilar adenopathy. Bilateral breasts implants. Partially visualized mottle appearance and lytic changes at C7 vertebral body concerning for osseous metastasis is similar compared to prior examination. No other suspicious osseous lesion identified. Degenerative changes of the spine with multilevel mild chronic anterior vertebral compression. CT ABDOMEN AND PELVIS FINDINGS: Postoperative changes relating to rectum/distal colon resection with left lower quadrant ostomy and small peristomal fat hernia appears unchanged. No focal bowel wall thickening or bowel obstruction. Mild constipation. The liver is normal in size and contour. Limited evaluation of liver demonstrate no large hepatic mass or metastasis. The gallbladder is surgically absent. No biliary ductal dilatation. The Spleen, pancreas, and kidneys are unremarkable. No hydronephrosis or nephrolithiasis. There is no lymphadenopathy, inflammation, or free fluid observed. The partially decompressed bladder is unremarkable. Prior hysterectomy. No suspicious osseous lesion. Multilevel lumbar spine fusion is redemonstrated. IMPRESSION: Partially limited evaluation without intravenous contrast. 1. Stable left lung post surgical changes. No new pulmonary nodule. 2. Lytic process involving the C7 vertebral body concerning for osseous metastases appear similar compared to prior examination. No new osseous lesion identified. 3. Prior rectum and distal large bowel resection with left lower abdominal quadrant colostomy. No evidence of recurrent or metastatic disease within the abdomen or pelvis (on noncontrast CT). Electronically signed by: Sloan Garcia DO 07/28/2019 6:45 PM CDT
== END ==
LOC: CT 15:11
PROVIDERS: ATTEND Internal Medicine
DX: C20 Malignant neoplasm of rectum (principal); C78.00 Secondary malignant neoplasm of unspecified lung; M89.9 Disorder of bone, unspecified; Z98.890 Other specified postprocedural states; Z93.3 Colostomy status

== ENCOUNTER → 2019-11-17 | Outpatient (CLI) | payer MEDICARE ==
--- NOTE | 2019-11-18 13:19 | CT ---
EXAM DESCRIPTION: Abdoment/Pelvis w/o Contrast (accession [id number]), Chest w/o Contrast (accession [id number]) CLINICAL HISTORY: 69 years, Female, METS TO LIVER AND BONE COMPARISON: Previous CT chest, abdomen and pelvis July 28, 2019 TECHNIQUE: CT of the chest, abdomen and pelvis is performed according to our non contrast protocol. FINDINGS: CT chest Lungs: Wedgelike density in the posterior aspect of the apical posterior segment left upper lobe is seen anterior to the upper left major fissure. Linear density in the superior segment left lower lobe is also present. Similar density was seen on the previous study consistent with atelectasis or focal scarring. No rounded component or enlarging area to suggest malignancy in this location. Port-A-Cath is present on the right. Bilateral breast implants.. No worrisome pulmonary mass or nodule. Mediastinum: Lymph nodes are normal in size. Normal vascular contours. Heart size is normal with no pericardial effusion. Chest wall/axilla: No mass or adenopathy. Bilateral breast implants appear unchanged in contour. Port-A-Cath is present on the right with tip in the lower superior vena cava. Lower neck/supraclavicular: No soft tissue mass or adenopathy. Sagittal reformatted images show partial compression of T9 vertebrae unchanged from previous. Markedly sclerotic appearance of C7 vertebral body is noted consistent with blastic or healed metastasis. On the previous study, this had a somewhat more destructive appearance suggesting interval improvement. Verified pedicles and pars interarticularis noted involving T1 more than T2 similar to previous study. Destructive changes in the right pedicle of C6 with rarefied area in the anterior vertebral body of C5. Findings are consistent with osseous metastatic disease. Sternum appears intact. Coronal reformatted images show subtle rarefied areas of the right sternal body unchanged from previous. CT abdomen Pneumobilia is seen in the left lobe of the liver and the gallbladder is surgically absent. Slight prominence of intrahepatic bile ducts in the right lobe. If patient has elevated alkaline phosphatase, this could be further evaluated. Density in the lower common duct could be stent or refluxed contrast. Dense contrast is seen distending the stomach and duodenum. Contrast is seen in proximal small bowel loops. Ostomy site in the left lower quadrant. Previous resection of the rectum and distal colon. Liver, spleen, and pancreas are otherwise unremarkable. Adrenal glands appear normal. The right kidney is unremarkable. The left kidney is unremarkable. No renal stones or hydronephrosis. Small bowel loops appear normal in caliber with normal wall thickness. There is no lymphadenopathy, inflammation, or free fluid observed. CT pelvis Orthopedic hardware in the lower lumbar spine. In the pelvis, the appendix is not identified, thought to be surgically absent. No inflammation around the cecum or terminal ileum. Surgically absent sigmoid colon and rectum. No stones in the distal ureters or bladder. Rectal wall thickness is normal for degree of distention. No free fluid or mass in the pelvis. Uterus and ovaries are not seen, evidently surgically absent. No inguinal or lower pelvic adenopathy. Coronal and sagittal reformatted images confirm the findings. No metastatic disease is identified in the sacrum or lumbar spine. No pelvic bony destructive lesion. IMPRESSION: Lower cervical spinal bony metastatic disease as described. Stable CT appearance of the postoperative scarring in the left lung. No acute process in the abdomen or pelvis. This exam was performed according to our departmental dose-optimization program, which includes automated exposure control, adjustment of the mA and/or kV according to patient size and/or use of iterative reconstruction technique. Total DLP equals 705.89 mGycm. Electronically signed by: Randolph Williamson MD 11/18/2019 1:17 PM CDT
== END ==
LOC: CT 13:30
PROVIDERS: ATTEND Internal Medicine
DX: Z01.812 Encounter for preprocedural laboratory examination (principal); C78.7 Secondary malignant neoplasm of liver and intrahepatic bile duct; C79.51 Secondary malignant neoplasm of bone; C20 Malignant neoplasm of rectum; J98.4 Other disorders of lung

== ENCOUNTER 2020-01-11 15:20 | Observation (INO) | payer MEDICARE ==
--- NOTE | 2020-01-11 15:35 | ED.PDOC ---
History of Present Illness - General Time Seen by Provider: 01/11/20 15:29 Source: patient, RN notes reviewed, Vital Signs reviewed Additional Information: 69 year old with hx just to have the rectal cancer with metastastatic desease to lung liver and cervical spine and on chemotherapy last month she underwent neck surgery to remove a metastatic tumor on C7 last month. her surgeron saw her and told that everything was okay no plan for chemotherapy yet because it seems like they remove the entire lesion, but patient presents to the ER because of not eating or drinking, this regular for 2 weeks, has tried to give her some boost patient refuses to drink patient is Currently on home health - History of Present Illness Timing/Duration: other - chronic Improving Factors: nothing Worsening Factors: nothing Associated Symptoms: denies symptoms Allergies/Adverse Reactions: Allergies Codeine Allergy (Verified 10/29/18 00:55) NSAIDs Adverse Reaction (Verified 10/29/18 00:55) Sulfa Antibiotics Adverse Reaction (Verified 10/29/18 00:55) Tetracycline Adverse Reaction (Verified 10/29/18 00:55) Home Medications: Ambulatory Orders Cyclobenzaprine HCl [Flexeril] 10 mg PO TID 04/10/14 Hydrochlorothiazide 25 mg PO DAILY 04/10/14 Metoprolol Succinate [Metoprolol Succinate ER] 25 mg PO DAILY 04/03/18 Omeprazole 40 mg PO DAILY 04/03/18 Oxycodone W/ Acetaminophen [Oxycodone/Acetaminophen] 1 tab PO QID 04/03/18 Acyclovir [Zovirax] 400 mg PO DAILY 10/29/18 Buspirone HCl [Buspirone Hydrochloride] 30 mg PO DAILY 10/29/18 Potassium Chloride [Potassium Chloride ER] 20 meq PO DAILY #20 tab 10/29/18 Sertraline HCl [Zoloft] 150 mg PO DAILY 10/29/18 Topiramate 50 mg PO DAILY 10/29/18 Review of Systems - Review of Systems Constitutional: States: no symptoms reported EENTM: States: no symptoms reported Respiratory: States: no symptoms reported Cardiology: States: no symptoms reported Gastrointestinal/Abdominal: States: no symptoms reported Genitourinary: States: no symptoms reported Musculoskeletal: States: no symptoms reported Skin: States: no symptoms reported Neurological: States: no symptoms reported Endocrine: States: no symptoms reported Hematologic/Lymphatic: States: no symptoms reported Past Medical History (General) - Patient Medical History Hx Seizures: Yes Hx Stroke: No Hx Asthma: No Hx of COPD: No Hx Cardiac Disorders: No Hx Congestive Heart Failure: No Hx Hypertension: Yes Hx Thyroid Disease: No Hx Diabetes: No Hx Gastroesophageal Reflux: Yes Hx Renal Disease: No Hx Cancer: Yes - Breast,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 Hx of HIV: No Hx MRSA: Yes - Surveillance Swab 2014 - Vaccination History Hx Tetanus, Diphtheria Vaccination: Yes Hx Influenza Vaccination: Yes Hx Pneumococcal Vaccination: No - Social History Hx Tobacco Use: Yes Hx Alcohol Use: Yes - occ Hx Physical Abuse: No Hx Emotional Abuse: No Hx Suspected Abuse: No Family Medical History - Family History Mother Family History: Unknown Living Status: Unknown Hx Family Cancer: Yes - leukemia-dad Physical Exam - Physical Exam General Appearance: Other - chronically ill, pole, cachectic and weak Eye Exam: bilateral normal Ears, Nose, Throat: hearing grossly normal, normal ENT inspection, normal pharynx, other - dry lips Neck: non-tender, full range of motion, supple Respiratory: chest non-tender, lungs clear, normal breath sounds, no respiratory distress, no accessory muscle use Cardiovascular/Chest: normal peripheral pulses, regular rate, rhythm, no edema, no gallop, no JVD, no murmur Gastrointestinal/Abdominal: normal bowel sounds, non tender, soft, no organomegaly, no pulsatile mass Back Exam: normal inspection, no CVA tenderness, no vertebral tenderness Extremity: normal range of motion, non-tender, normal inspection, no pedal edema, no calf tenderness Neurologic: yarn sorter II-XII nml as tested, no motor/sensory deficits, alert, normal mood/affect, oriented x 3 Skin Exam: normal color Lymphatic: no adenopathy Progress - Progress Progress: 01/11/20 17:02 69 year old Female that recently underwent cervical spine surgery due to metastatic cancer, presents to the ER because of failure to thrive decreased oral intake and generalized weakness. No fever no chills no abdominal pain in terms of patient's previous surgery, she was seen by her surgeon and she was told everything was fine, but according to the she has not been eating well, I noticed that patient does not appear to have any respiratory distresscachectic very weak pale lab work show evidence of metabolic acidosis probably due to dehydration with no evidence of renal failure, normal potassium, I did notice that patient bilirubin was elevated also alkaline phosphatase. So I decided to order a ultrasound of the common bile duct to evaluate for choledocolithiasis . Any common bile duct disease I will consult this case with the hospitalist for admission for failure to thrive decreased oral intake and generalise weakness Departure - Departure Clinical Impression: Generally unwell, Dehydration Failure to thrive Qualifiers: Failure to thrive age range: in adult Qualified Code(s): R62.7 - Adult failure to thrive Disposition: Admit Patient Condition: Fair Referrals: TERESSA GREENE [Primary Care Provider] - 1-2 Weeks Home Medications: Ambulatory Orders Cyclobenzaprine HCl [Flexeril] 10 mg PO TID 04/10/14 Hydrochlorothiazide 25 mg PO DAILY 04/10/14 Metoprolol Succinate [Metoprolol Succinate ER] 25 mg PO DAILY 04/03/18 Omeprazole 40 mg PO DAILY 04/03/18 Oxycodone W/ Acetaminophen [Oxycodone/Acetaminophen] 1 tab PO QID 04/03/18 Acyclovir [Zovirax] 400 mg PO DAILY 10/29/18 Buspirone HCl [Buspirone Hydrochloride] 30 mg PO DAILY 10/29/18 Potassium Chloride [Potassium Chloride ER] 20 meq PO DAILY #20 tab 10/29/18 Sertraline HCl [Zoloft] 150 mg PO DAILY 10/29/18 Topiramate 50 mg PO DAILY 10/29/18 Decision To Admit - Decistion To Admit Decision to Admit Reason: Admit from ER Decision to Admit Date: 01/11/20 Decision to Admit Time: 17:06
--- NOTE | 2020-01-11 15:59 | RAD ---
EXAM DESCRIPTION: Chest,1 View CLINICAL HISTORY: 69 years Female, weakness COMPARISON: CT chest 11/17/2019. Chest radiograph 10/28/2018 TECHNIQUE: Single view radiograph of the chest. IMPRESSION: Unchanged cardiac silhouette. Stable right chest wall port and catheter. Scattered atelectasis. No lobar consolidation. No pleural effusion or pneumothorax. Thoracic spondylosis. Lower cervical and lumbar fusion. Electronically signed by: Kamar Mccray MD 01/11/2020 3:57 PM ADMINISTRATIVE OFFICE ASSISTANT
[2020-01-11] MEDS ORDERED: cefTRIAXone SODIUM 1 GM in SODIUM CHL 0.9% 50ML MIN-BAG+ 50 ML IVPB ONE (17:23)
[2020-01-11] MEDS ORDERED: SODIUM CHLORIDE 0.9% 1000ML 1,000 ML IVS ONE (18:54)
[2020-01-11] MEDS ORDERED: ONDANSETRON INJ 4 MG/2 ML VIAL ONE (20:24)
[2020-01-11] MEDS ORDERED: ONDANSETRON INJ 4 MG/2 ML VIAL IV ONE (20:24)
--- NOTE | 2020-01-11 20:56 | US ---
EXAM DESCRIPTION: US ABDOMEN LIMITED CLINICAL HISTORY: Choledocholithiasis TECHNIQUE: Real-time and villalba scale sonographic imaging of the right upper quadrant was performed. COMPARISON: Correlation is made with abdomen pelvis CT dated 07/28/2019 FINDINGS: Limitations: Examination terminated early at patient's request. Right kidney incompletely imaged. Liver: 13.4 cm. Normal in echotexture. No focal mass. Gallbladder: Surgically using absent. chemical engineering technologist noted a sonographic negative Cooley's. Common bile duct: 12 mm in diameter (9 mm on the comparison CT). There is mild intrahepatic biliary ductal dilatation. No identifiable ductal stones. Pancreas: Unremarkable as visualized Right kidney: Unremarkable as visualized. IVC: Unremarkable as visualized Free fluid: None IMPRESSION: Mild intrahepatic and extrahepatic biliary dilatation, progressed from the prior. No ductal gallstones identified. Electronically signed by: Darwin Crowder MD 01/11/2020 8:55 PM PROPERTY LOSS INSURANCE CLAIM ADJUSTER
[2020-01-11] MEDS ORDERED: KCL 20MEQ/0.45% NS 1,000 ML IVS ONE (21:10)
[2020-01-11] MEDS ORDERED: METHADONE HCL 10 MG TAB PO PRN (21:12)
[2020-01-11] MEDS ORDERED: CYCLOBENZAPRINE HCL 10 MG TAB PO PRN (21:12)
[2020-01-11] MEDS ORDERED: SODIUM CHLORIDE 0.9% (FLUSH) 10 ML SYG IV PRN (21:15)
[2020-01-11] MEDS ORDERED: NON-FORMULARY MEDICATION 1 EA MIS (Pregabalin [Lyrica] 50 MG) PO SCH (21:15)
[2020-01-11] MEDS ORDERED: ONDANSETRON INJ 4 MG/2 ML VIAL IV PRN (21:15)
[2020-01-11] MEDS ORDERED: IV SET AND CAP CHANGE INJ INJ SCH (21:30)
[2020-01-11] MEDS ORDERED: PREGABALIN 25 MG CAP ONE (21:51)
[2020-01-11] MEDS ORDERED: levETIRAcetam 250 MG TAB ONE (21:51)
[2020-01-11] MEDS ORDERED: PROMETHAZINE HCL INJ 25 MG/ML VIAL ONE (22:35)
[2020-01-11] MEDS ORDERED: SODIUM CHL 0.9% 50ML MIN-BAG+ 50 ML IVPB ONE (22:36)
[2020-01-11] MEDS: PROMETHAZINE HCL INJ 25 MG in SODIUM CHLORIDE 0.9% 50ML 50 ML IVPB PRN (22:38)
[2020-01-11] MEDS: NON-FORMULARY MEDICATION 1 EA MIS (Levetiracetam [Levetiracetam] 500 MG) PO SCH ×2 (22:40→23:54)
[2020-01-11] MEDS: POTASSIUM CHLORIDE 20 MEQ TAB PO ONE ×2 (22:40→23:54)
[2020-01-12] MEDS ORDERED: FUROSEMIDE INJ 20 MG/2 ML VIAL ONE (04:27)
[2020-01-12] MEDS ORDERED: SODIUM CHLORIDE 0.9% 50ML 50 ML ONE (05:46)
[2020-01-12] MEDS ORDERED: PROMETHAZINE HCL INJ 25 MG/ML VIAL ONE (05:46)
[2020-01-12] MEDS: PROMETHAZINE HCL INJ 25 MG in SODIUM CHLORIDE 0.9% 50ML 50 ML IVPB PRN (05:49)
[2020-01-12] MEDS ORDERED: PANTOPRAZOLE SODIUM IV 40 MG VIAL IV SCH (06:30)
[2020-01-12] MEDS ORDERED: CLOPIDOGREL 75 MG TAB PO SCH (09:00)
[2020-01-12] MEDS ORDERED: POTASSIUM CHLORIDE 20 MEQ TAB PO SCH (09:00)
[2020-01-12] MEDS ORDERED: cefTRIAXone SODIUM 1 GM in SODIUM CHL 0.9% 50ML MIN-BAG+ 50 ML IVPB SCH (09:00)
[2020-01-12] MEDS ORDERED: SODIUM CHLORIDE 0.9% (FLUSH) 10 ML SYG IV SCH (09:00)
[2020-01-12] MEDS ORDERED: busPIRone HCL 5 MG TAB PO SCH (09:00)
[2020-01-12] MEDS ORDERED: SERTRALINE HCL 50 MG TAB PO SCH (09:00)
[2020-01-12] MEDS ORDERED: POTASSIUM CHLORIDE ELIXIR 20 MEQ/15 ML UD PO ONE (09:02)
[2020-01-12] MEDS ORDERED: PREGABALIN 25 MG CAP PO SCH (09:15)
--- NOTE | 2020-01-12 13:23 | SSS ---
SUPERVISING PHYSICIAN: Brock Ross MD DATE OF ADMISSION: 01/11/20 DATE OF DISCHARGE: 01/12/20 DISCHARGE DIAGNOSIS: 1. Dehydration. 2. Anorexia. 3. Urinary tract infection. 4. Rectal cancer with metastasis to the spine, liver and lungs. 5. Hypertension. 6. Seizure disorder. HISTORY OF PRESENT ILLNESS: This is a 69-year-old female patient who presented to the Emergency Room due to anorexia and weakness. She has a history of rectal cancer with metastasis to the lungs, liver and cervical spine. She has had chemotherapy in the past. About a month ago, she underwent neck surgery to remove metastatic tumor on C7. She is presently on no radiation or chemotherapy, but in the last 2 weeks, her appetite and oral intake have been very poor. She has become weaker and weaker. In fact, the patient admits she does not take her medications most of the time because it hurts too much to swallow and she just does not feel like it. Her initial vital signs showed temperature 98.3, heart rate 96, blood pressure 153/116, respiratory rate 20, O2 saturation 96% on room air. Her lab showed WBC 11,500, hemoglobin 10, hematocrit 29.6. She had a left shift on differential. Sodium 142, potassium 3.1, chloride 109, carbon dioxide 17, BUN 38, creatinine 0.99, glucose 157, total bilirubin 4.1, ALT 68, alkaline phosphatase 1751. TSH 0.21, lipase 18. Urinalysis showed orange color with 100 of urine protein, 100 of urine glucose, 15 urine ketones, trace of intact urine blood, greater than 8 urobilinogen, small amount of urine leukocyte esterase, greater than 100 urine WBCs and 3+ urine bacteria. Blood cultures were done. COVID testing per PCR was negative. Urine culture was ordered. Chest x-ray showed unchanged cardiac silhouette, stable right chest wall port and catheter, scattered atelectasis, no lobar consolidation, no pleural effusion or pneumothorax. Thoracic spondylosis with lower cervical and lumber fusion. She was given some fluids in the Emergency Room as well as some Zofran. She was also given a dose of ceftriaxone. She was placed in the hospital in stable condition. PAST MEDICAL HISTORY: 1. Breast cancer. 2. Hypertension. 3. Rectal cancer with metastasis to the liver, spine and lungs. 4. Seizure disorder. PAST SURGICAL HISTORY: 1. Double mastectomy. 2. Recent C7 spinal surgery to remove a metastatic lesion. 3. Hysterectomy. 4. Gallbladder. 5. Appendectomy. OUTPATIENT MEDICATIONS: 1. Cyclobenzaprine. 2. Hydrochlorothiazide. 3. Metoprolol. 4. Omeprazole. 5. Oxycodone. 6. Methadone. 7. Acyclovir. 8. BuSpar. 9. Potassium chloride. 10. Sertraline. 11. Topiramate. ALLERGIES: CODEINE, NSAIDS, SULFA, TETRACYCLINE. SOCIAL HISTORY: She lives in [place]. She is . She denies tobacco, ETOH or illicit drug use. She does use a home health service, but she does not know what it is. REVIEW OF SYSTEMS: GENERAL: Positive for fatigue. Negative for fever or weight changes. HEENT: Negative for sinus symptoms, ear pain, vision changes or sore throat. RESPIRATORY: Negative for wheezing, coughing or shortness of breath. CARDIAC: Negative for chest pain, palpitations or tachycardia. GASTROINTESTINAL: Positive for anorexia and poor oral intake. Negative for nausea, vomiting, diarrhea, constipation or abdominal pain. GENITOURINARY: Negative for hematuria, dysuria or polyuria. MUSCULOSKELETAL: Negative for arthralgias, myalgias. SKIN: Negative for lesions or rashes although she does have an incision to her neck from her recent surgery. There are no problems reported. NEUROLOGIC: She is awake and alert, but at times, she gets mildly confused and has difficulty with her thinking processes, but she answers most simple questions appropriately. PHYSICAL EXAMINATION: VITAL SIGNS: Temperature 97.9, heart rate 76, blood pressure 161/79, respiratory rate 16, O2 saturation 96% on room air. GENERAL: This is a 69-year-old patient lying in her hospital bed. She looks to be moderately ill. HEENT: Normocephalic, atraumatic. Pupils are equal and reactive. Oropharynx is clear. NECK: Supple without mass. RESPIRATORY: Essentially clear to auscultation bilaterally. CHEST: There is equal rise and fall of the chest with inspiration and expiration. CARDIOVASCULAR: Regular rate and rhythm. GASTROINTESTINAL: Abdomen is soft, nondistended, nontender. Bowel sounds are positive. NEUROLOGIC: She is awake and alert, oriented to person and place. BACK: Deferred. EXTREMITIES: No cyanosis, clubbing or edema. LABORATORY: Followup labs show WBCs 10,100 with hemoglobin 8.8, hematocrit 25.8. Sodium 145, potassium 3.5, creatinine 35, lactic acid 1.1. Total bilirubin is 3.4, ALT 51, alkaline phosphatase 1550. MICROBIOLOGY: Preliminary blood cultures are negative to date. Initial urine culture shows gram negative rods. RADIOLOGY: Abdominal ultrasound shows mild intrahepatic and extrahepatic biliary dilatation progressed from the prior, no ductal or gallstones identified. All other labs and films have been reviewed via the EMR. HOSPITAL COURSE: The patient was placed in observation and given gentle hydration overnight. She also had supplemental potassium. She revealed to the nurses that she had not been taking her medications because it hurts too much to take them. We did offer to change those to be liquids that could be changed and she refused at this time. I discussed the possibility of hospice care. Her was unavailable at the time we discussed it. She was somewhat confused and could not even remember her home health company. She had also been given another dose of ceftriaxone in the hospital. Her vital signs are stable. She will be discharged home in stable condition. DISCHARGE PLAN: The patient will be discharged home in stable condition. She is to resume her previous diet and has been encouraged to increase her intake including using Boost or supplemental higher protein drinks. She is to increase her activity as tolerated. She is to followup with her oncologist as well as her primary care physician, Dr. Rutledge, in the next 1 to 2 weeks. In addition to her home medications, she will also have cephalexin liquid 500 mg twice daily for 7 days. Recommendations were given for hospice care due to her poor prognosis. She is to return to the hospital or followup with Dr. Rutledge for any problems or complications. DISCHARGE MEDICATIONS: 1. Cyclobenzaprine. 2. Omeprazole. 3. Potassium chloride. 4. Sertraline. 5. Buspirone. 6. Levetiracetam. 7. Lyrica. 8. Benicar. 9. Methadone. 10. Plavix. 11. Oxycodone. 12. Vitamin C. 13. Melatonin. 14. Cephalexin. #[id number] [facility]
[2020-01-12 14:45] VITALS: O2SAT 98
[2020-01-12 15:43] VITALS: BP 158/77; TEMP 98
[2020-01-12] MEDS ORDERED: ENOXAPARIN SODIUM 40 MG/0.4 ML SYG SUBCU SCH (21:00)
[2020-01-12] MEDS ORDERED: levETIRAcetam 250 MG TAB PO SCH (21:00)
[2020-01-13] MEDS ORDERED: LOSARTAN POTASSIUM 100 MG TAB PO SCH (09:00)
== END 2020-01-12 12:45 | disposition home health service (06) ==
LOC: ER 15:20 → MS 21:03
PROVIDERS: ADMIT Nurse Practitioner Acute Care; ATTEND Nurse Practitioner Acute Care
DX: E86.0 Dehydration (principal); R63.0 Anorexia; N39.0 Urinary tract infection, site not specified; C20 Malignant neoplasm of rectum; C78.00 Secondary malignant neoplasm of unspecified lung; C78.7 Secondary malignant neoplasm of liver and intrahepatic bile duct; C79.51 Secondary malignant neoplasm of bone; R62.7 Adult failure to thrive; Z68.1 Body mass index [BMI] 19.9 or less, adult; R53.1 Weakness; I10 Essential (primary) hypertension; G40.909 Epilepsy, unspecified, not intractable, without status epilepticus; K21.9 Gastro-esophageal reflux disease without esophagitis; I44.4 Left anterior fascicular block; Z93.3 Colostomy status; Z20.828 Contact with and (suspected) exposure to other viral communicable diseases; Z79.891 Long term (current) use of opiate analgesic; Z79.899 Other long term (current) drug therapy; Z85.3 Personal history of malignant neoplasm of breast; Z90.13 Acquired absence of bilateral breasts and nipples; Z90.49 Acquired absence of other specified parts of digestive tract; Z90.710 Acquired absence of both cervix and uterus; Z88.2 Allergy status to sulfonamides; Z88.3 Allergy status to other anti-infective agents; Z88.6 Allergy status to analgesic agent; Z88.8 Allergy status to other drugs, medicaments and biological substances
CPT/HCPCS: 96366 ×2; 96367; 96365; 96375 ×2; 96376; J0696 ×2; J1940; J2405; J2550 ×2; J7030; A4216; J3480; J7050 ×3; 80053 ×2; 87086; 36415 ×3; 81001; 85025 ×2; 87040; 87186; 83690; 83735; 84443; 83605; 87088; 71045; 76775; 94760 ×2; 99285; 93005; G0378; 87581; 87486; 87633; 87635

== ENCOUNTER 2020-01-18 14:47 | Emergency (ER) | payer MEDICARE ==
[2020-01-18] MEDS ORDERED: HYDROmorphone HCL INJ 2 MG/ML VIAL IV ONE ×2 (15:03→16:55)
[2020-01-18] MEDS ORDERED: SODIUM CHLORIDE 0.9% 1000ML 1,000 ML IVS ONE (15:03)
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
[2020-01-18] MEDS ORDERED: [UNRECOGNIZED DRUG - OTHER] IVPB ONE (16:07)
[2020-01-18] MEDS ORDERED: POTASSIUM CHLORIDE IVPB ONE (16:07)
--- NOTE | 2020-01-18 16:50 | US ---
EXAM DESCRIPTION: Abdomen,Limited CLINICAL HISTORY: 69 years Female right upper quadrant pain COMPARISON: 01/11/2020. TECHNIQUE: Transabdominal grayscale imaging were performed to evaluate the right upper quadrant. FINDINGS: Surgically absent gallbladder. There is mild biliary ductal dilatation both intrahepatic and extrahepatic. Common duct measures 1.3 cm. This is similar to the previous examination. Liver appears mildly heterogeneous without focal lesion noted. Right kidney is unremarkable. IMPRESSION: Surgically absent gallbladder with mild intra and extra hepatic polarity ductal dilatation, unchanged from prior study. Findings may be related to cholecystectomy. If there is concern for obstruction recommend MRCP Electronically signed by: Nancy Nj MD 01/18/2020 4:48 PM HEAD CASHIER
[2020-01-18] MEDS ORDERED: POTASSIUM CHLORIDE ELIXIR 20 MEQ/15 ML UD PO ONE (16:54)
--- NOTE | 2020-01-18 18:17 | CT ---
EXAM DESCRIPTION: Head CLINICAL HISTORY: ams COMPARISON: None Available TECHNIQUE: Contiguous axial CT images of the head were obtained. Coronal and sagittal reconstructions were created from the axial data. This exam was performed according to our departmental dose-optimization program, which includes automated exposure control, adjustment of the mA and/or kV according to patient size and/or use of iterative reconstruction technique. FINDINGS: There is no evidence of acute mass, mass effect, midline shift or hemorrhage. The ventricles and extra-axial CSF spaces are unremarkable. The brain parenchyma appears normal for the patient's age. No acute abnormalities of the bones is seen. IMPRESSION: No acute intracranial abnormality. Electronically signed by: Jose Ramon Felipe 01/18/2020 6:15 PM [facility]
--- NOTE | 2020-01-18 18:21 | CT ---
CT ABDOMEN PELVIS WITH IV CONTRAST CLINICAL STATEMENT: abd pain COMPARISON: CT abdomen pelvis dated 11/17/2019 This exam was performed according to our departmental dose-optimization program which includes automated exposure control, adjustment of the mA and/or kVp according to patient size and/or use of iterative reconstruction technique where applicable. FINDINGS: Liver demonstrates moderate intrahepatic biliary dilatation. This is worsening compared to the prior study. There appears to be soft tissue filling the CBD which is dilated to 1.4 cm. Pancreatic duct is not dilated. Small scattered hepatic cysts are noted. Liver is within normal limits. The pancreas otherwise does not demonstrate lesions enhance body and tail. Adrenal glands are within normal limits. No hydronephrosis and kidneys. No dilated loops of bowel to suggest obstruction. Left lower quadrant ostomy. Mild amount of stool in the colon. No free fluid or free air. Postoperative changes in the pelvis and presacral region status post sigmoid colectomy. No abdominal or pelvic lymphadenopathy. Abdominal aorta mildly calcified without aneurysm. Postoperative changes in lumbar spine. IMPRESSION: Moderate biliary dilatation, worsening compared to recent study from 11/17/2019. There appears to be soft tissue filling the CBD. This may represent malignancy such as cholangiocarcinoma. Recommend correlation with clinical history. Electronically signed by: Montana Ackerman MD 01/18/2020 6:19 PM ORDER CLERK
--- NOTE | 2020-01-18 18:26 | CT ---
CT LUMBAR SPINE WITHOUT IV CONTRAST CLINICAL STATEMENT: back pain, met cancer This exam was performed according to our departmental dose-optimization program which includes automated exposure control, adjustment of the mA and/or kVp according to patient size and/or use of iterative reconstruction technique where applicable. FINDINGS: Vertebral body heights are intact. Alignment is intact. Postoperative changes with anterior and posterior lumbar fusion hardware noted from L2 through S1. No significant subluxation. The hardware is intact. No abnormal paraspinal soft tissue or fluid collections. No definite significant lytic or blastic lesions are identified given the limitations from artifacts from significant hardware. IMPRESSION: Postoperative changes. No compression fractures. Electronically signed by: Montana Ackerman MD 01/18/2020 6:24 PM [facility]
--- NOTE | 2020-01-18 18:32 | CT ---
CT THORACIC SPINE WITHOUT IV CONTRAST CLINICAL STATEMENT: back pain, met cancer COMPARISON: CT chest dated 11/17/2019 This exam was performed according to our departmental dose-optimization program which includes automated exposure control, adjustment of the mA and/or kVp according to patient size and/or use of iterative reconstruction technique where applicable. FINDINGS: Minimal T9 anterior wedge compression deformity with about 15% loss of height superiorly, unchanged from prior study. No new compression fractures. Upper thoracic spine fusion hardware is again noted. No new lytic or blastic lesions are noted. No subluxation. No abnormal paraspinal soft tissue or fluid collections. IMPRESSION: Postoperative changes. No new compression fractures. Electronically signed by: Montana Ackerman MD 01/18/2020 6:30 PM [employer]VENT PLANT [employer]
--- NOTE | 2020-01-18 22:20 | RAD ---
EXAM DESCRIPTION: Chest,1 View 01/18/2020 10:17 PM COMPOUNDING AND FINISHING SUPERVISOR CLINICAL HISTORY: 69 years, Female, elevated trop COMPARISON: 01/11/2020 FINDINGS: Single view of the chest was obtained portable. Prior films were compared. There is prior lower cervical anterior and posterior instrumentation. There is a right IJ venous port in place. Increased density within the lower chest area corresponding to breast implants. There is mild hyperinflation with subsegmental minimal linear density within the left upper lung zone perhaps ingesting scarring and/or subsegmental atelectatic changes The cardiomediastinal silhouette demonstrate to be unremarkable. Heart is not enlarged. The thoracic aorta is unremarkable. Costophrenic angles are sharp. No areas of consolidation or masses are seen. Again there is instrumentation within the lower lumbar spine. Status post cholecystectomy. The rest of the soft tissue and bony structures demonstrate to be unremarkable. IMPRESSION: VENOUS PORT IN PLACE. SCARRING/ATELECTASIS LEFT UPPER LUNG ZONE. NO FOCAL AREAS OF ACUTE AIRSPACE DISEASE Electronically signed by: Gaetano Crowe MD 01/18/2020 10:19 PM COMPOUNDING AND FINISHING SUPERVISOR
[2020-01-18] MEDS ORDERED: HEPARIN SODIUM (PORCINE) 5,000 U/ML VIAL SUBCU ONE (22:29)
[2020-01-18 22:52] VITALS: TEMP 97.1; O2SAT 97
[2020-01-18 23:13] VITALS: BP 173/99
== END 2020-01-18 23:23 | disposition short-term general hospital (02) ==
LOC: ER 14:47
DX: I21.4 Non-ST elevation (NSTEMI) myocardial infarction (principal); E87.6 Hypokalemia; C78.7 Secondary malignant neoplasm of liver and intrahepatic bile duct; C79.51 Secondary malignant neoplasm of bone; E11.9 Type 2 diabetes mellitus without complications; I45.10 Unspecified right bundle-branch block; I10 Essential (primary) hypertension; K21.9 Gastro-esophageal reflux disease without esophagitis; Z20.828 Contact with and (suspected) exposure to other viral communicable diseases; Z85.048 Personal history of other malignant neoplasm of rectum, rectosigmoid junction, and anus; Z92.21 Personal history of antineoplastic chemotherapy; Z92.3 Personal history of irradiation; Z85.3 Personal history of malignant neoplasm of breast; Z79.899 Other long term (current) drug therapy; Z79.02 Long term (current) use of antithrombotics/antiplatelets; Z88.5 Allergy status to narcotic agent; Z88.6 Allergy status to analgesic agent; Z88.2 Allergy status to sulfonamides; Z88.3 Allergy status to other anti-infective agents
CPT/HCPCS: 36415; 70450; 71045; 72128; 72131; 74177; 76775; 80048; 80076; 83690; 83735; 83880; 84132; 84443; 84484; 85025; 85610; 85730; 87040; 87502; 87635; 93005; J1170; J1644; J3480; J7030